=== PATIENT | female | born 1955 | race Caucasian/White ===

== ENCOUNTER 2019-11-29 06:56 | Day surgery (SDC) | payer OTHER, SELFPAY ==
[2019-11-20 08:47] VITALS: BMI 25.0
--- NOTE | 2019-11-20 09:21 | HP_ITS ---
Intake Vital Signs 11/20/19 Height 5 ft 5 in 11/20/19 Weight: 150 lb 11/20/19 BP 119/66 11/20/19 Blood Pressure Location Rt brachial 11/20/19 Position Sitting 11/20/19 Respiration 16 Intake Visit Reasons: EGD & C-Scope Monkey Keeper Required: No Is patient in pain?: No Allergies No Known Allergies Allergy (Unverified 11/20/19 08:48) Medications ascorbic acid (vitamin C) 500 mg capsule mg PO 11/20/19 [History Confirmed 11/20/19] calcium carbonate 500 mg (1,250 mg)-vitamin D3 200 unit tablet 1 tab PO DAILY 11/20/19 [History Confirmed 11/20/19] carboxymethylcellulose sodium 0.5 % eye drops 1 drp OPHTHALMIC BID 11/20/19 [History Confirmed 11/20/19] cholecalciferol (vitamin D3) 25 mcg (1,000 unit) tablet 25 mcg PO DAILY 11/20/19 [History Confirmed 11/20/19] cyclosporine 0.05 % eye drops 1 drp OPHTHALMIC Q12H 11/20/19 [History Confirmed 11/20/19] duloxetine 60 mg capsule,delayed release sprinkle 60 mg PO DAILY 11/20/19 [History Confirmed 11/20/19] famotidine 20 mg tablet 20 mg PO DAILY 11/20/19 [History Confirmed 11/20/19] fenofibrate 160 mg tablet 160 mg PO DAILY 11/20/19 [History Confirmed 11/20/19] fluticasone propionate 50 mcg/actuation nasal spray,suspension 1 spray INTRANASAL DAILY 11/20/19 [History Confirmed 11/20/19] hydrochlorothiazide 12.5 mg tablet 12.5 mg PO DAILY 11/20/19 [History Confirmed 11/20/19] loratadine 10 mg tablet 10 mg PO DAILY 11/20/19 [History Confirmed 11/20/19] losartan 100 mg tablet 100 mg PO DAILY 11/20/19 [History Confirmed 11/20/19] nebivolol 5 mg tablet 5 mg PO DAILY 11/20/19 [History Confirmed 11/20/19] niacin 500 mg tablet 500 mg PO DAILY 11/20/19 [History Confirmed 11/20/19] omeprazole 20 mg tablet,delayed release 20 mg PO DAILY #60 tab 11/20/19 [Rx Confirmed 11/20/19] pravastatin 40 mg tablet 40 mg PO DAILY 11/20/19 [History Confirmed 11/20/19] sucralfate 1 gram tablet 1 g PO QACHS #120 tab 11/20/19 [Rx Confirmed 11/20/19] [facility] Medical History Allergies (Acute) Depression (Acute) High cholesterol (Acute) Reflux esophagitis (Acute) HTN (hypertension) (Chronic) Social History (Updated 11/20/19 @ 09:[address] Sukh Givens MD) Smoking Status: Never smoker alcohol intake: never HPI HPI HPI: CLAUDIA FROST, is a 64 F who presents to the office today for HPI HPI Surgical H&P: Yes HPI: CLAUDIA FROST, is a 64 F who presents to the office today for Abdominal pain and change in stool caliber. The patient reports that she has been having indigestion as well as abdominal pain especially with coffee and eating. She describes the pain as diffuse abdominal. She is also been having change in her stool caliber describing pencil thin stools. She also says it is very hard to wipe. She does not describe any gross blood in her stool. Her last colonoscopy was in 2014 and was normal besides a hyperplastic polyp. ROS General General: No weight change or fatigue Musc Musculoskeletal: Yes arthritis Cardio Cardiovascular: Yes high blood pressure; no murmur, pacemaker, heart disease, atrial fibrillation, heart attack, heart stent, palpitations, shortness of breat with exertion or chest pain Psych Psychiatric: Yes depression; no anxiety Resp Respiratory: No shortness of breath, No sleep apnea, No cough, No COPD, No asthma, No emphysema, No wheezing Gastro Gastrointestinal: Yes abdominal pain, Yes nausea or vomiting, No diarrhea, Yes constipation, No blood in stool, Yes acid reflux, No hemorrhoids, No ulcers, No gallbladder problem, No black,tarry stools Alvaro Hematologic: No blood thinners Exam Const General: cooperative Orientation: alert, oriented x3 Resp Effort & Inspection: normal respiratory effort Auscultation: clear to auscultation bilaterally Cardio Rate: regular rate Rhythm: regular rhythm Heart Sounds: no murmurs GI Inspection: non-distended Palpation: soft, tender Assessment & Plan Problems 1. Generalized abdominal pain R10.84 2. Change in stool caliber R19.5 3. Gastroesophageal reflux disease, esophagitis presence not specified K21.9 Plan Patient has GERD which is been getting worse. She says that her abdominal pain is especially bad when she drinks coffee. She says that she also has been having change in stool caliber and decreased stool caliber. I recommend EGD and colonoscopy. I also started her on Carafate and a PPI. I explained endoscopy in detail to the patient. I explained the risks including but not limited to stroke or heart attack with anesthesia, perforation of the GI tract, bleeding, infection. I explained that any of these could necessitate further emergency surgery. The patient understands and all questions were answered sufficiently. The patient wishes to proceed with procedure. We discussed the current risks associated with COVID-19. While it is understood that there is a community spread of COVID-19, the risk of alvina COVID-19 while at [facility] ([facility]) is very low; however, the risk cannot be completely mitigated because of the community spread of the disease. We discussed in detail the risk of exposure to and/or potential harm posed by the COVID-19 virus with having a surgery/procedure at this time versus the risk of delaying the surgery/procedure. It is not possible to know either the risk of delaying the surgery or procedure or chance of getting an infection with perfect accuracy, but a joint decision was made to proceed at this time with the scheduled surgery/procedure as indicated on the consent form. Patient was notified that we will need to comply with any screening or testing [facility] wishes to perform or that surgery may be delayed for any positive results. Sukh Givens MD Pager: [facility] [address] [place] [address], [address] [place] [address] Office: Orders Orders: Colonoscopy Today R10.9, R19.5 EGD Today K21.9 Medications New: sucralfate (Carafate) 1 g PO QACHS 120 tabs 0RF omeprazole 20 mg PO DAILY 60 tabs 2RF Coding Level of Care Code Off vis,new,level 3 Diagnoses Generalized abdominal pain R10.84 ??Abdominal location: generalized Change in stool caliber R19.5 Gastroesophageal reflux disease, esophagitis presence not specified K21.9 ??Esophagitis presence: esophagitis presence not specified 11/20/19 0921 <Electronically signed by Sukh prince MD> Date _ Sukh Givens MD I have re-examined the patient. There are no clinical changes since date of exam.
--- NOTE | 2019-11-29 | GASB_PTH ---
PATIENT: CLAUDIA FROST LOC: EN U#:[id number] AGE/SX: 64/F ROOM: RE11/29/[address]: Dr. Sukh Givens MD : 1955 BED: DIS: 11/29/2019 SPEC #: [id number] RECD: 11/29/19 13:38 STATUS: TALIB BUBBA #: [id number] CARLOS: 11/29/19 00:[address]: Sukh Givens DEPT: SURGICAL PATHOLOGY RECD BY: Reyes Mckeon ENTERED: 11/30/19 08:43 SP TYPE: Gastric Bx OTHR DR: Ingris Judge, [place] Tissues: A - Gastric mucous membrane B - Gastric mucous membrane Procedures: Special Stain Group II Surgery Specimen Level IV Alcian Blue/PAS (control) HEADER OPERATION: [place] [place] DIAGNOSIS: GERD, abdomen pain, change in stool caliber TISSUE SUBMITTED: A - Antrum biopsy for histo and H. pylori, B - GE junction biopsy MICROSCOPIC DIAGNOSIS A. Antrum, biopsy: Mild gastritis. See microscopic description and comment. B. GE junction, biopsy: Fragments of gastroesophageal mucosa with moderate acute and chronic inflammation. Intestinal metaplasia (goblet cell metaplasia) not identified. Reactive epithelial changes. See comment. SJ:obi 12/03/19 COMMENT A. The results of immunohistochemistry for Helicobacter pylori will be reported separately ([id number]). B. Alcian blue/PAS stain with matched control is used in the evaluation of the specimen. Case has been reviewed in consultation with Dr. Zavaleta who concurs with the above diagnosis. IDC:AM MICROSCOPIC DESCRIPTION Slides are reviewed. A. The specimen shows fragments of gastric mucosa with chronic inflammatory cell infiltrates in the lamina propria consisting of lymphocytes and plasma cells, consistent with mild chronic gastritis. GROSS DESCRIPTION A - Received in fixative is one container labeled with the patient's name and designated antrum biopsy. The specimen consists of two irregular fragments of light robles soft tissue that in aggregate measure 0.5 x 0.3 x 0.1 cm. The specimen is totally submitted in one cassette. B - Received in fixative is one container labeled with the patient's name and designated GE junction biopsy. The specimen consists of two irregular fragments of light robles soft tissue that in aggregate measure 0.4 x 0.3 x 0.1 cm. The specimen is totally submitted in one cassette. / SJ:rg 11/30/19 TC:4 CPT: 65904 x2, 53944
[2019-11-29 07:21] VITALS: BP 132/77; PULSE 67; RESP 16; TEMP 36.4; O2SAT 99; BMI 24.3
[2019-11-29] MEDS: Lactated Ringers 1,000 ML 100 ML IV (07:49)
--- NOTE | 2019-11-29 08:00 | IMM_PTH ---
PATIENT: CLAUDIA FROST LOC: EN U#:[id number] AGE/SX: 64/F ROOM: RE11/29/[address]: Dr. Sukh Givens MD : 1955 BED: DIS: 11/29/2019 SPEC #: [id number] RECD: 11/30/19 09:50 STATUS: TALIB BUBBA #: [id number] CARLOS: 11/29/19 08:[address]: Sukh Givens DEPT: IMMUNOHISTOCHEMISTRY RECD BY: Petrona Almaraz ENTERED: 11/30/19 09:51 SP TYPE: IMMUNO OTHR DR: Ingris Judge, TERR[place] Tissues: A - Stomach, NOS Procedures: H Pylori (initial) PHYSICIAN & INSTITUTION [place] [id number] SPECIMEN INFORMATION: Tissue Source: A - Antrum biopsy Clinical Info: GERD, abdomen pain, change in stool caliber Specimen Number: [id number] CPT code: 70627 METHODOLOGY: Deparaffinized sections of prefer/formalin-fixed tissue or PAP/DQ stained slides are incubated with monoclonal/polyclonal antibodies/oligonucleotide probes. Localization is made via biotin free immunoperoxidase method. Appropriate controls are performed and reacted as expected. Results on target cell population are indicated in the following table: RESULTS: ANTIBODY / CLONE RESULT Block A H Pylori (polyclonal) negative These tests were developed and their performance characteristics determined by [facility]. They may not have been cleared or approved by the U.S. Food and Drug Administration. The FDA has determined that such clearance or approval is not necessary. INTERPRETATION: A. Antrum, biopsy: Negative for Helicobacter pylori organisms. SJ:obi 12/03/19
--- NOTE | 2019-11-29 08:48 | OP.EGD_ITS ---
Patient Name: Maricarmen Jenkins Procedure Date: 11/29/2019 8:19 AM Date of : 1955 Age: 64 Procedure: Upper GI endoscopy Indications: Epigastric abdominal pain, Melena Providers: Sukh Givens MD Referring MD: Eufemia Ruvalcaba Medicines: Monitored Anesthesia Care Patient Profile: This is a 64 year old female. Refer to note in patient chart for documentation of history and physical. Complications: No immediate complications. Estimated blood loss: Minimal. Procedure: Pre-Anesthesia Assessment: - Prior to the procedure, a History and Physical was performed, and patient medications and allergies were reviewed. The patient's tolerance of previous anesthesia was also reviewed. The risks and benefits of the procedure and the sedation options and risks were discussed with the patient. All questions were answered, and informed consent was obtained. Prior Anticoagulants: The patient has taken no previous anticoagulant or antiplatelet agents. After reviewing the risks and benefits, the patient was deemed in satisfactory condition to undergo the procedure. After obtaining informed consent, the endoscope was passed under direct vision. Throughout the procedure, the patient's blood pressure, pulse, and oxygen saturations were monitored continuously. The gastroscope was introduced through the mouth, and advanced to the second part of duodenum. The upper GI endoscopy was accomplished without difficulty. The patient tolerated the procedure well. Scope In: 8:26:59 AM Scope Out: 8:31:16 AM Total Procedure Duration Time 0 hours 4 minutes 17 seconds Findings: Diffuse mild inflammation characterized by adherent blood was found in the prepyloric region of the stomach. Biopsies were taken with a cold forceps for Helicobacter pylori testing. Biopsies were taken with a cold forceps at the gastroesophageal junction for histology. Impression: - Gastritis. Biopsied. - Biopsies were taken with a cold forceps for histology at the gastroesophageal junction. Recommendation: - Discharge patient to home. - Resume previous diet. - Continue present medications. - Await pathology results. Procedure Code(s): --- Professional --- 15222, Esophagogastroduodenoscopy, flexible, transoral; with biopsy, single or multiple Diagnosis Code(s): --- Professional --- K29.70, Gastritis, unspecified, without bleeding R10.13, Epigastric pain K92.1, Melena (includes Hematochezia) CPT copyright 2017 [employer]. All rights reserved. The codes documented in this report are preliminary and upon drafting detailer review may be revised to meet current compliance requirements. Sukh Givens MD 11/29/2019 8:47:40 AM This report has been signed electronically. Number of Addenda: 0 Note Initiated On: 11/29/2019 8:19 AM
--- NOTE | 2019-11-29 08:48 | OP.CCLET_ITS ---
11/29/2019 Eufemia Ruvalcaba Re : Upper GI endoscopy procedure for Maricarmen Sibley Nu This procedure was performed on November. My impressions and recommendations are as follows: Impressions : - Gastritis. Biopsied. - Biopsies were taken with a cold forceps for histology at the gastroesophageal junction. Recommendations : - Discharge patient to home. - Resume previous diet. - Continue present medications. - Await pathology results. My findings are described in the full procedure note, which is enclosed. If I can be of further assistance, please feel free to contact me at Doctor phone number(s): , Work: . Sincerely, Sukh Givens MD 11/29/2019 8:47:40 AM This report has been signed electronically.
--- NOTE | 2019-11-29 08:49 | OP.COLON_ITS ---
Patient Name: Maricarmen Jenkins Procedure Date: 11/29/2019 8:31 AM Date of : 1955 Age: 64 Procedure: Colonoscopy Indications: Abdominal pain in the left lower quadrant, Melena, Change in stool caliber Providers: Sukh Givens MD Referring MD: Eufemia Ruvalcaba Medicines: Monitored Anesthesia Care Patient Profile: This is a 64 year old female. Refer to note in patient chart for documentation of history and physical. Last Colonoscopy: 5 years ago. Complications: No immediate complications. Procedure: Pre-Anesthesia Assessment: - Prior to the procedure, a History and Physical was performed, and patient medications and allergies were reviewed. The patient's tolerance of previous anesthesia was also reviewed. The risks and benefits of the procedure and the sedation options and risks were discussed with the patient. All questions were answered, and informed consent was obtained. Prior Anticoagulants: The patient has taken no previous anticoagulant or antiplatelet agents. After reviewing the risks and benefits, the patient was deemed in satisfactory condition to undergo the procedure. After I obtained informed consent, the scope was passed under direct vision. Throughout the procedure, the patient's blood pressure, pulse, and oxygen saturations were monitored continuously. The Colonoscope was introduced through the anus and advanced to the cecum, identified by appendiceal orifice and ileocecal valve. The colonoscopy was performed without difficulty. The patient tolerated the procedure well. The quality of the bowel preparation was good. Scope In: 8:33:03 AM Scope Withdrawal Time 0 hours 6 minutes 35 seconds Scope Out: 8:43:25 AM Total Procedure Duration Time 0 hours 10 minutes 22 seconds Findings: The entire examined colon appeared normal on direct and retroflexion views. Impression: - The entire examined colon is normal on direct and retroflexion views. - No specimens collected. Recommendation: - Discharge patient to home. - Resume previous diet. - Continue present medications. - Repeat colonoscopy in 10 years for screening purposes. Procedure Code(s): --- Professional --- 70911, Colonoscopy, flexible; diagnostic, including collection of specimen(s) by brushing or washing, when performed (separate procedure) Diagnosis Code(s): --- Professional --- R10.32, Left lower quadrant pain K92.1, Melena (includes Hematochezia) R19.5, Other fecal abnormalities CPT copyright 2017 [employer]. All rights reserved. The codes documented in this report are preliminary and upon conductor orchestra review may be revised to meet current compliance requirements. Sukh Givens MD 11/29/2019 8:49:30 AM This report has been signed electronically. Number of Addenda: 0 Note Initiated On: 11/29/2019 8:31 AM
--- NOTE | 2019-11-29 08:49 | OP.CCLET_ITS ---
11/29/2019 Eufemia Ruvalcaba Re : Colonoscopy procedure for Maricarmen Farfanr Nu This procedure was performed on November. My impressions and recommendations are as follows: Impressions : - The entire examined colon is normal on direct and retroflexion views. - No specimens collected. Recommendations : - Discharge patient to home. - Resume previous diet. - Continue present medications. - Repeat colonoscopy in 10 years for screening purposes. My findings are described in the full procedure note, which is enclosed. If I can be of further assistance, please feel free to contact me at Doctor phone number(s): , Work: . Sincerely, Sukh Givens MD 11/29/2019 8:49:30 AM This report has been signed electronically.
[2019-11-29 08:51] VITALS: BP 109/67; BP 132/77; PULSE 79; RESP 16; TEMP 36.1; O2SAT 97
[2019-11-29 08:55] VITALS: BP 121/64; BP 132/77; PULSE 78; RESP 16; O2SAT 97
[2019-11-29 09:02] VITALS: BP 114/61; BP 132/77; PULSE 75; RESP 16; O2SAT 99
[2019-11-29 09:03] VITALS: BP 123/63; BP 132/77; PULSE 72; RESP 16; TEMP 36.1; O2SAT 99
[2019-11-29 09:30] VITALS: BP 129/61; BP 132/77; PULSE 67; RESP 18; TEMP 36.1; O2SAT 97
== END 2019-11-29 09:33 | disposition home or self-care (01) ==
LOC: EN 06:57 → AC 06:59
PROVIDERS: Anesthesiology; PCP Nurse Practitioner Family; Referring Provider Nurse Practitioner Family; Visit Provider Surgery
PROC: 0DJD8ZZ Inspection of Lower Intestinal Tract, Via Natural or Artificial Opening Endoscopic (ICD-10-PCS; CPT 45378; principal; 2019-11-29 07:55)
DX: K29.70 Gastritis, unspecified, without bleeding (principal); K21.9 Gastro-esophageal reflux disease without esophagitis; R19.5 Other fecal abnormalities; F32.9 Major depressive disorder, single episode, unspecified; E78.00 Pure hypercholesterolemia, unspecified; I12.9 Hypertensive chronic kidney disease with stage 1 through stage 4 chronic kidney disease, or unspecified chronic kidney disease; N18.3 Chronic kidney disease, stage 3 (moderate); Z11.59 Encounter for screening for other viral diseases; Z79.899 Other long term (current) drug therapy
CPT/HCPCS: 43239; 45378; 87635; 88305; 88313; 88342; G2023; J7120; J2405; U0003

== ENCOUNTER → 2020-01-04 | Outpatient (CLI) | payer OTHER, SELFPAY ==
--- NOTE | 2020-01-04 07:44 | US_ITS ---
STUDY: ABDOMINAL ULTRASOUND - RIGHT UPPER QUADRANT REASON FOR VISIT: Female, 64 years old ABD PAIN AFTER EATING -- HX OF GASTRITIS TECHNIQUE: Ultrasound evaluation of the right upper quadrant was performed with real-time and static rodriguez-scale imaging. TECHNICAL QUALITY: Adequate. COMPARISON: None. FINDINGS: Liver: The liver measures 15.2 cm. There is normal echogenicity of the liver. The bile ducts are within normal limits. There is hepatic color flow. The direction of portal flow is hepatopetal. There is no demonstrated mass lesion. Gallbladder: Normal distended gallbladder. The gallbladder wall measures 2.5 mm. There is a negative sonographic Ferrara''s sign. There is no pericholecystic fluid. There are no gallstones. Common Bile Duct (C.B.D.): The common bile duct measures 3.6 mm. Pancreas: Normal size of the head, body and tail of the pancreas. There is increased echogenicity of the pancreas. There is no demonstrated pancreatic mass or cyst. Right Kidney: Normal size of the right kidney. The right kidney measures 10.1 cm x 4.1 cm x 4.4 cm. Normal renal cortex. The right cortex measures 1.2 cm. There is no demonstrated renal mass or cyst. There is no right hydronephrosis. US/Abdomen Limited IMPRESSION: Normal right upper quadrant ultrasound examination. Electronically Signed: Missael De Luna, at 9:52 EDT , Service support ,
== END | disposition home or self-care (01) ==
PROVIDERS: PCP Nurse Practitioner Family; Referring Provider Surgery; Visit Provider Surgery
DX: R10.11 Right upper quadrant pain (principal)
CPT/HCPCS: 76705

== ENCOUNTER → 2022-01-14 | Outpatient (CLI) | payer MEDICARE, SELFPAY ==
--- NOTE | 2022-01-14 15:36 | MRI_ITS ---
STUDY: MRI RIGHT SHOULDER REASON FOR EXAM: Decreased range of motion of the right shoulder, no specific injury, evaluate for rotator cuff tear. TECHNIQUE: Standardized fat and water weighted pulse sequences were obtained in all 3 orthogonal planes. COMPARISON: Radiographs 11/17/2021. FINDINGS: There is supraspinatus tendinosis and a small low-grade partial-thickness tear of the bursal surface of the distal anterior supraspinatus tendon (T2 coronal image 14) measuring 0.3 cm in length. There is mild infraspinatus tendinosis (T2 coronal image 9) without discrete tendon tear. Normal subscapularis tendon. Normal teres minor tendon. There is a cyst at the supraspinatus musculotendinous junction (T2 coronal image 10) measuring 1.1 cm in mediolateral dimension. Normal infraspinatus muscle. Normal subscapularis muscle. Normal teres minor muscle. Normal glenohumeral articulation. There is mild cystic change of the greater tuberosity. Normal biceps labral complex. Normal intracapsular long biceps tendon. Normal labrum. Normal capsulo- ligamentous complex. There is acromioclavicular arthrosis with a joint effusion (T2 sagittal image 11) without undersurface osteophytes. There is a Type II morphology (curved), with a neutral orientation. There is a small volume of subacromial-subdeltoid bursal fluid. Normal visualized coracohumeral and coracoacromial ligaments. Normal deltoid muscle. Normal trapezius muscle. MRI/Upper Ext Joint Only(Routine) IMPRESSION: Small low-grade partial-thickness tear and tendinosis of the supraspinatus tendon. Mild infraspinatus tendinosis. Cyst at the supraspinatus musculotendinous junction. Acromioclavicular arthrosis. Mild subacromial-subdeltoid bursitis. Electronically Signed: Tray Jorge MD at 8:52 EDT ,
== END | disposition home or self-care (01) ==
PROVIDERS: PCP Nurse Practitioner Family; Visit Provider Orthopaedic Surgery Sports Medicine
DX: M75.81 Other shoulder lesions, right shoulder (principal)
CPT/HCPCS: 73221

== ENCOUNTER 2022-03-03 08:18 | Day surgery (SDC) | payer MEDICARE, SELFPAY ==
[2022-02-25 10:18] LABS: Hematocrit 38.5 % (37-47); Hemoglobin 12.2 g/dL (12.0-15.0); Mean Corp Hgb Conc 31.7 g/dL (32-36); Mean Corpuscular Hgb 26.6 pg (27.0-32.0); Mean Corpuscular Volume 84.1 fL (81-99); Platelet Count 247 K/mm3 (150-450); RBC Distribution Width CV 13.9 % (11.6-14.6); RBC Distribution Width SD 43.2 fl (35.1-43.9); Red Blood Count 4.58 M/mm3 (4.2-5.4); White Blood Count 5.9 K/mm3 (4.4-11.0)
[2022-02-25 10:48] LABS: Anion Gap 8 (5-15); BUN 25 mg/dL (7-18); BUN/Creat Ratio 22.3 RATIO (10-20); Calcium,Total 9.9 mg/dL (8.5-10.1); Chloride 100 mmol/L (98-107); Creatinine, Serum 1.12 mg/dL (0.55-1.02); EST Glomerular Filtration Rate 52 mL/min (>60); Est Glom Filt Rate - Afr Amer 63 mL/min (>60); Glucose 90 mg/dL (74-106); Potassium 3.6 mmol/L (3.5-5.1); Sodium Level 137 mmol/L (136-145)
[2022-03-03] VITALS (7 sets, daily range): BP systolic 114–131; BP diastolic 58–86; PULSE 58–63; RESP 16–18; TEMP 36.1–37; O2SAT 94–100; BMI 24.9
[2022-03-03] MEDS: Lactated Ringers 1,000 ML 15 ML IV (08:50)
[2022-03-03] MEDS: Cefazolin 2 GM in 0.9% Normal Saline 100 ML IV (10:05)
--- NOTE | 2022-03-03 10:10 | HP.PCM_ITS ---
HPI - General HPI Narrative CLAUDIA FROST, is a 66 F who presents for right shoulder scope, SAD, RCR, DCE. No changes to health or plan. Right shoulder marked, plan for block. No questions or concerns from the patient. No Known Allergies Allergy (Verified 02/11/22 08:14) Medications ascorbic acid (vitamin C) 500 mg capsule 500 mg PO DAILY 11/20/19 [History Confirmed 02/11/22] calcium carbonate 500 mg-vitamin D3 5 mcg (200 unit) tablet (Calcium 500 + D) 1 tab PO DAILY 11/20/19 [History Confirmed 02/11/22] carboxymethylcellulose sodium 0.5 % eye drops (Refresh Tears) 1 drp ophthalmic (eye) BID 11/20/19 [History Confirmed 02/11/22] cholecalciferol (vitamin D3) 25 mcg (1,000 unit) tablet 25 mcg PO DAILY 11/20/19 [History Confirmed 02/11/22] cyclosporine 0.05 % eye drops (Restasis MultiDose) 1 drp ophthalmic (eye) Q12H 11/20/19 [History Confirmed 02/11/22] fenofibrate 160 mg tablet 160 mg PO DAILY 11/20/19 [History Confirmed 02/11/22] nebivolol 5 mg tablet (Bystolic) 5 mg PO DAILY 11/20/19 [History Confirmed 02/11/22] niacin 500 mg tablet 500 mg PO DAILY 11/20/19 [History Confirmed 02/11/22] hydrochlorothiazide 25 mg tablet 25 mg PO 01/01/22 [History Confirmed 02/11/22] magnesium 250 mg tablet 500 mg PO DAILY 01/01/22 [History Confirmed 02/11/22] sertraline 50 mg tablet 75 mg PO 01/01/22 [History Confirmed 02/11/22] simvastatin 40 mg tablet 40 mg PO 01/01/22 [History Confirmed 02/11/22] sucralfate 1 gram tablet See Rx Instructions .Route .COMPLEX #90 tabs 01/28/22 [Rx Confirmed 02/11/22] PFSH Medical History? AC joint arthropathy Allergies Depression High cholesterol History of skin cancer HTN (hypertension) Reflux esophagitis Rotator cuff tear, right Subacromial impingement of right shoulder Surgical History? Hx of knee surgery Family History? Sister CVA (cerebral vascular accident)Mother DiabetesFather Heart disease Hypertension Diabetes Cancer Social History? Smoking Status:? Former smoker alcohol intake:? never HPI RIGHT SHOULDER Details: Parts of this documentation were recorded by a scribe, this documentation accurately reflects the service provided and the decisions made by me, Dr. Hilton Recio MD 02/11/22 0801. CLAUDIA FROST is a 66 year old F here today for follow-up on right shoulder pain including small rotator cuff tear AC joint arthrosis and impingement syndrome.? She did find some relief from the injection but the pain is returned.? Specially prominent at the anterior superior lateral aspect of the shoulder worse at night worse with sleeping worse with overhead activity and abduction or reaching away from the body. Ortho Exam General General: Yes no acute distress and Yes well groomed Neurologic: Yes alert, Yes oriented x3 and No confused Psychologic: Yes reasonable and appropriate Right Shoulder Skin/Wound: Yes CDI, No ecchymosis, No erythema and No swelling Contralateral Normal: Yes Testing: Positive Hawkin's, Neer's, Speed's, TTP Biceps, TTP AC Joint, AROM- Forward Elevation 0-180, AROM-External Rotation at side 0-60 and empty can; Negative Drop Arm or scapular winging SHOULDER: Positive cross body adduction test.? Strength in forward elevation and external rotation 5/5.? Positive painful arc. Supplemental Info 01/14/22 Exam# [id number] ? Ordering Dr:? Hilton Recio MD STUDY: ? MRI RIGHT SHOULDER REASON FOR EXAM: Decreased range of motion of the right shoulder, no specific injury, evaluate for rotator cuff tear. TECHNIQUE: ? Standardized fat and water weighted pulse sequences were obtained in all 3 orthogonal planes. COMPARISON: ? Radiographs 11/17/2021. FINDINGS: There is supraspinatus tendinosis and a small low-grade partial-thickness tear of the bursal surface of the distal anterior supraspinatus tendon (T2 coronal image 14) measuring 0.3 cm in length. There is mild infraspinatus tendinosis (T2 coronal image 9) without discrete tendon tear. Normal subscapularis tendon.? Normal teres minor tendon. There is a cyst at the supraspinatus musculotendinous junction (T2 coronal image 10) measuring 1.1 cm in mediolateral dimension.? Normal infraspinatus muscle.? Normal subscapularis muscle.? Normal teres minor muscle. Normal glenohumeral articulation.? There is mild cystic change of the greater tuberosity.? Normal biceps labral complex.? Normal intracapsular long biceps tendon.? Normal labrum.? Normal capsulo- ligamentous complex. There is acromioclavicular arthrosis with a joint effusion (T2 sagittal image 11) without undersurface osteophytes.? There is a Type II morphology (curved), with a neutral orientation. There is a small volume of subacromial-subdeltoid bursal fluid. Normal visualized coracohumeral and coracoacromial ligaments. Normal deltoid muscle.? Normal trapezius muscle. MRI/Upper Ext? Joint Only(Routine) IMPRESSION: Small low-grade partial-thickness tear and tendinosis of the supraspinatus tendon. ? Mild infraspinatus tendinosis. ? Cyst at the supraspinatus musculotendinous junction. ? Acromioclavicular arthrosis. ? Mild subacromial-subdeltoid bursitis. ? Electronically Signed: Tray Jorge MD at 8:52 EDT Reading Location ID and State: [facility] / [place] Tel , Service support? , Coding Level of Care Code Off vis,est,level 4 Diagnoses Rotator cuff tear, right? M75.101 Right shoulder pain? M25.511 AC joint arthropathy? M19.019 Subacromial impingement of right shoulder? M75.41 Time Spent (min) 30 Assessment and Plan Assessment and Plan (1) Rotator cuff tear, right: ?Status:?Acute ?Plan: 66-year-old female with partial-thickness right supraspinatus tear tendinosis AC joint arthrosis and mild amount of subacromial bursitis.? We again discussed different treatment options.? She could try rest ice anti-inflammatories activit y modifications repeat subacromial cortisone injections physical therapy or other means of treatment.? She seems to want a definitive solution to this problem she seems to be interested in right shoulder arthroscopy this would include distal clavicle excision and subacromial decompression and rotator cuff repair with bursectomy. Pros and cons risks and benefits were discussed with the patient including but not limited to infection, pain, stiffness, bleeding, damage to surrounding structures, neurovascular injury, recurrence or retear, failure or wear of hardware or fixation, instability, fracture, deep vein thrombosis and pulmonary embolism, anesthetic risks, patient dissatisfaction, need for further surgery and other risks.? Patient understood and wished to proceed with surgery, and signed the informed consent documentation. I discussed the recovery associated with this likely 2 weeks in a sling followed by range of motion exercises physical therapy progressing to strengthening by 6 to 8 weeks after surgery. This patient has 4 different diagnosis about the shoulder, came in undif ferentiated.? We are booking today major joint elective surgery with risk factors including hypertension and dyslipidemia. [facility] Medical History (Updated 02/24/22 @ 10:39 by Nona Linda) AC joint arthropathy Alcohol use Allergies Arthritis Depression Diabetes Former smoker High cholesterol History of edema History of renal disease History of skin cancer History of steroid therapy History of stress test History of ulceration HTN (hypertension) Leg cramps Reflux esophagitis Rotator cuff tear, right Subacromial impingement of right shoulder Home Medications ascorbic acid (vitamin C) 500 mg capsule 500 mg PO DAILY 11/20/19 [History Last Taken Unknown] carboxymethylcellulose sodium 0.5 % eye drops (Refresh Tears) 1 drp ophthalmic (eye) BID 11/20/19 [History Last Taken Unknown] cholecalciferol (vitamin D3) 25 mcg (1,000 unit) tablet 25 mcg PO DAILY 11/20/19 [History Last Taken Unknown] cyclosporine 0.05 % eye drops (Restasis MultiDose) 1 drp ophthalmic (eye) Q12H 11/20/19 [History Last Taken Unknown] fenofibrate 160 mg tablet 160 mg PO DAILY 11/20/19 [History Last Taken Unknown] nebivolol 5 mg tablet (Bystolic) 5 mg PO DAILY 11/20/19 [History Last Taken 03/03/22] niacin 500 mg tablet 500 mg PO DAILY 11/20/19 [History Last Taken Unknown] hydrochlorothiazide 25 mg tablet 25 mg PO DAILY 01/01/22 [History Last Taken 03/03/22] magnesium 250 mg tablet 500 mg PO DAILY 01/01/22 [History Last Taken Unknown] sertraline 50 mg tablet 75 mg PO DAILY 01/01/22 [History Last Taken Unknown] simvastatin 40 mg tablet 40 mg PO DAILY 01/01/22 [History Last Taken Unknown] Allergy/AdvReac Type Severity Reaction Status Date / Time No Known Allergies Allergy Verified 03/03/22 08:38 Family History Sister CVA (cerebral vascular accident) Mother Diabetes Father Heart disease Hypertension Diabetes Cancer Surgical History (Updated 02/24/22 @ 10:39 by Nona Linda) Hx of colonoscopy Hx of total knee replacement Social History Smoking Status: Former smoker alcohol intake: never Vital Signs Vital Signs Vital Signs: 03/03/22 08:44 03/03/22 08:44 Temperature 98.6 F Temperature Source Temporal Pulse Rate 63 Respiratory Rate 16 Respiratory Pattern Normal Blood Pressure 131/62 H Blood Pressure Mean 85 Blood Pressure Source Monitor Blood Pressure Position Semi-Fowlers Blood Pressure Location Left Arm Pulse Ox 100 Oxygen Delivery Method Room Air Weight Weight: 149 lb 14.629 oz Body Mass Index (BMI) 24.9 Results Lab / Micro Data Result Diagrams: 02/25/22 09:30 02/25/22 09:30
--- NOTE | 2022-03-03 12:13 | PCM.OPRPT ---
Problems Associated Problem List Diagnoses (1) Subacromial impingement of right shoulder: (2) AC joint arthropathy: (3) Rotator cuff tear, right: Report of Operation Date of Procedure: 03/03/22 Pre-Operative Diagnosis: right shoulder RC tear, ACJ arthrosis, impingement Post-Operative Diagnosis: same Surgery/Procedure Performed:: right shoulder arthroscopy, sub acromial decompression, distal clavicle excision, rotator cuff repair Description of Surgical Findings:: leading edge full thickness 5mm x 5mm tear SS tendon, ACJ arthrosis Surgeon: Hilton Recio Type of Anesthesia: Block,Regional and General Anesthesiologist: Vadmi Balderas Estimated Blood Loss (mL): 30 Description of Procedure: Patient was brought to the operating room theater.? They were placed supine on the operating room table.? 2 g of IV Ancef was administered prior to start of the case.? General anesthesia was induced.? Patient had a preoperative block.? Patient was placed right side up lateral decubitus with the aid of a beanbag positioner.? Axillary roll was placed.? All bony prominences appropriately padded.? Sequential devices on the legs.? Right upper extremity prepped and draped in the usual sterile fashion with chlorhexidine prep solution allowing over 3 minutes drying time prior to draping.? 10 pounds of inline traction with the arm in slight abduction was used.? Preoperative timeout performed to confirm the site patient in the surgery. I began by making a small incision posteriorly inserted the arthroscope into the intra-articular portion of the shoulder.? I performed thorough diagnostic arthroscopy.?Used inside out spinal needle to localize anterior portal, through rotator interval posterior to LHB. Undersurface of the rotator cuff in the anterior aspect of the supraspinatus tendon had obvious fraying there was some thinning here palpable from the superior surface.?I took arthroscopy pictures throughout and saved them onto the system. Biceps normal for age, subscapularis normal, normal lever push, cartilage normal on glenoid, grade 1 on humerus head. Small 5mm aspect of MGHL appeared to be forming into a loose body, so removed that and debrided that part. Next I inserted the arthroscope into the subacromial portion of the shoulder.? I performed a thorough bursectomy. Used one canula laterally, and eventually accessory AL canula / portal.? There is slight downsloping of the anterior lateral acromion I used a jenny to flatten this out for a total thickness of approximately 3 mm.? Next I performed a distal clavicle excision for a length of 3mm. Next identify the area of fraying and partial-thickness tearing of the supraspinatus tendon. This was anterior leading edge, and full thickness with probing. I used the Arthrex power pick to create a bleeding bed for healing at the GT. I then used 2 Arthrex 2.6 mm all suture self punching fiber tack anchors on the anterior and posterior margins of the partial-thickness tearing area.? I passed the working stitch through the loop of the opposite suture and tensioned this down appropriately to create an anterior to posterior bridging construct.? Next I used the Arthrex punch at an area at the lateral aspect of the rotator cuff insertion took the 2 free ends of the sutures and passed these into the swivel lock 4.75 mm bio Composite anchor and appropriately tensioned this down into place achieving good cortical purchase.? Sutures were cut short.? This created a nice triangular configuration trans-tendon suture repair without the need to take down any good fibers. Case was terminated arthroscope withdrawn.? ? Portal sites closed with 3-0 Monocryl sutures.? Skin was cleaned with wet and dry dressing followed application of Steri-Strips Xeroform gauze abdominal pad dressings and cloth tape.? Patient right upper extremity placed into a sling with an abduction pillow.? Patient woken up from general anesthetic transferred off the operating room table and taken to postanesthetic care unit in stable condition.? All sponge needle instrument counts were correct no complications.? Plan for the patient gentle pendulum exercises avoiding extremes of external rotation and forward elevation no heavy lifting hand wrist and elbow exercises 4 times a day follow-up in the office in 2 weeks time.? I have sent in a small prescription for oral combine narcotic Tylenol medication with appropriate counseling given preoperatively to the patient.? Patient will be discharged home when they are comfortable according to day surgery criteria. Complications none Admit VTE Documentation VTE Present on Admission: No VTE Mechan Device Prophylaxis: SCD's Reason prophylaxis not ordered:: Treatment Not Indicated Procedures Musculoskeletal [id number]: Other Procedure See Report
--- NOTE | 2022-03-03 12:20 | DCINST_ITS ---
Discharge Instructions Diet Discharge Diet: No restrictions Activity Discharge Activity: May Not Drive Keep extremity elevated above heart level: Operative Extremity Additional Activity Instructions:: pendulum exercises and hand/wrist/elbow exercises four times a day, otherwise sling. Dressing / Incision Call your doctor if your incision/area has: Continuous Slow Oozing, Sudden Increased Bleeding, Increased Pain/ Swelling, Increased Redness, Foul Smelling Discharge and Swelling at the incision site Remove Dressing in: leave in place till F/U Cleanse incision/area with: Do not get Incision Wet Follow Up Care Please Follow Up With: Hilton Recio MD When: 2 weeks Test Results: Test results from this visit will be discussed in further detail at your follow- up appointment, if applicable. Discharge Plan Admission Attending Provider: Hilton Recio Primary Care Provider: Ingris Judge NP Discharge Orders/Prescriptions Prescriptions: New oxycodone-acetaminophen [Percocet] 5-325 mg tablet 1 tab PO Q4H PRN (Reason: pain) 7 Days Qty: 30 0RF No Action Bystolic 5 mg tablet 5 mg PO DAILY fenofibrate 160 mg tablet 160 mg PO DAILY niacin 500 mg tablet 500 mg PO DAILY Refresh Tears 0.5 % drops 1 drp OPHTHALMIC BID Restasis MultiDose 0.05 % drops 1 drp OPHTHALMIC Q12H ascorbic acid (vitamin C) 500 mg capsule 500 mg PO DAILY cholecalciferol (vitamin D3) 25 mcg (1,000 unit) tablet 25 mcg PO DAILY simvastatin 40 mg tablet 40 mg PO DAILY hydrochlorothiazide 25 mg tablet 25 mg PO DAILY sertraline 50 mg tablet 75 mg PO DAILY magnesium 250 mg tablet 500 mg PO DAILY Referrals / Follow Up: Hilton Recio MD [Med Staff - Active Staff] - Ingris Judge NP, NP-C [Primary Care Provider] - Disposition Disposition (needs filled in before D/C Order can be placed): Home, Self Care
--- NOTE | 2022-03-03 12:23 | DCINST_ITS ---
Discharge Instructions Diet Discharge Diet: No restrictions Activity Keep extremity elevated above heart level: Operative Extremity Additional Activity Instructions:: pendulum exercises and hand/wrist/elbow exercises four times a day, otherwise sling. Dressing / Incision Call your doctor if your incision/area has: Continuous Slow Oozing, Sudden Increased Bleeding, Increased Pain/ Swelling, Increased Redness, Foul Smelling Discharge and Swelling at the incision site Cleanse incision/area with: Do not get Incision Wet Follow Up Care Please Follow Up With: Hilton Recio MD Test Results: Test results from this visit will be discussed in further detail at your follow- up appointment, if applicable. Discharge Plan Admission Attending Provider: Hilton Recio Primary Care Provider: Ingris Judge NP Discharge Orders/Prescriptions Prescriptions: New oxycodone-acetaminophen [Percocet] 5-325 mg tablet 1 tab PO Q4H PRN (Reason: pain) 7 Days Qty: 30 0RF No Action Bystolic 5 mg tablet 5 mg PO DAILY fenofibrate 160 mg tablet 160 mg PO DAILY niacin 500 mg tablet 500 mg PO DAILY Refresh Tears 0.5 % drops 1 drp OPHTHALMIC BID Restasis MultiDose 0.05 % drops 1 drp OPHTHALMIC Q12H ascorbic acid (vitamin C) 500 mg capsule 500 mg PO DAILY cholecalciferol (vitamin D3) 25 mcg (1,000 unit) tablet 25 mcg PO DAILY simvastatin 40 mg tablet 40 mg PO DAILY hydrochlorothiazide 25 mg tablet 25 mg PO DAILY sertraline 50 mg tablet 75 mg PO DAILY magnesium 250 mg tablet 500 mg PO DAILY Referrals / Follow Up: Hilton Recio MD [Med Staff - Active Staff] - Ingris Judge NP, KEENAN-C [Primary Care Provider] - Disposition Disposition (needs filled in before D/C Order can be placed): Home, Self Care
== END 2022-03-03 14:30 | disposition home or self-care (01) ==
LOC: SDC 08:18 → AC 08:20
PROVIDERS: PCP Nurse Practitioner Family; Referring Provider Orthopaedic Surgery Sports Medicine; Visit Provider Orthopaedic Surgery Sports Medicine
PROC: (CPT 29805; principal; 2022-03-03 09:45)
DX: M75.101 Unspecified rotator cuff tear or rupture of right shoulder, not specified as traumatic (principal); M75.111 Incomplete rotator cuff tear or rupture of right shoulder, not specified as traumatic; Z87.891 Personal history of nicotine dependence; M75.41 Impingement syndrome of right shoulder; E78.00 Pure hypercholesterolemia, unspecified; I10 Essential (primary) hypertension; Z79.899 Other long term (current) drug therapy; F32.A Depression, unspecified; M19.019 Primary osteoarthritis, unspecified shoulder
CPT/HCPCS: 29824; 29827; 29826; 01630; 64415; 36415; 80048; 85027; 93005; J7120; J2405

== ENCOUNTER 2023-11-29 06:52 | Day surgery (SDC) | payer MEDICARE, SELFPAY ==
[2023-11-29] VITALS (8 sets, daily range): BP systolic 97–139; BP diastolic 57–66; PULSE 56–74; RESP 16–18; TEMP 36.3–36.8; O2SAT 96–100; BMI 25.4
[2023-11-29] MEDS: Lactated Ringers 1,000 ML 15 ML IV (07:17)
--- NOTE | 2023-11-29 07:18 | HP.PCM_ITS ---
History and Physical Date of Admission: 11/29/23 Intake Vital Signs 03/03/2208:44 10/27/2407:11 Height 5 ft 5 in 5 ft 4 in Weight: 153 lb 8 oz BMI 26.3 BP 150/76 H Blood Pressure Location Rt brachial Position Sitting Respiration 18 Pulse 59 L Pulse Source Monitor Temp 97.4 F L Temp Source Temporal Pulse Oximetry (%) 99 Oxygen Delivery Method room air Intake Visit Reasons: MUCUS DISCHARGE IN STOOL Chief Complaint: Mucous and blood in stool Reverse Unit Operator Required: No Accompanied by: Is patient in pain?: No Allergies No Known Allergies Allergy (Verified 10/27/23 08:12) Medications ?Medication ?Instructions ?Recorded ?Confirmed ?Type ascorbic acid (vitamin C) 500 mg 500 mg PO DAILY 11/20/19 10/27/23 History capsule carboxymethylcellulose sodium 0.5 1 drp ophthalmic (eye) BID 11/20/19 10/27/23 History % eye drops (Refresh Tears) cholecalciferol (vitamin D3) 25 25 mcg PO DAILY 11/20/19 10/27/23 History mcg (1,000 unit) tablet cyclosporine 0.05 % eye drops 1 drp ophthalmic (eye) Q12H 11/20/19 10/27/23 History (Restasis MultiDose) fenofibrate 160 mg tablet 160 mg PO DAILY 11/20/19 10/27/23 History nebivolol 5 mg tablet (Bystolic) 5 mg PO DAILY 11/20/19 10/27/23 History niacin 500 mg tablet 500 mg PO DAILY 11/20/19 10/27/23 History hydrochlorothiazide 25 mg tablet 25 mg PO DAILY 01/01/22 10/27/23 History magnesium 250 mg tablet 500 mg PO DAILY 01/01/22 10/27/23 History sertraline 50 mg tablet 75 mg PO DAILY 01/01/22 10/27/23 History simvastatin 40 mg tablet 40 mg PO DAILY 01/01/22 10/27/23 History pantoprazole 40 mg tablet,delayed See Rx Instructions .Route 06/22/23 10/27/23 Rx release .COMPLEX #90 tabs ginkgo biloba 40 mg tablet 40 mg PO DAILY 10/27/23 10/27/23 History PFSH Medical History (Updated 10/27/23 @ 11:[address] Sukh Givens MD) Mucus in stool Blood in stool Right shoulder pain Alcohol use History of steroid therapy Diabetes Arthritis History of renal disease History of ulceration Former smoker Leg cramps History of edema History of stress test Subacromial impingement of right shoulder AC joint arthropathy Rotator cuff tear, right History of skin cancer Allergies High cholesterol Depression Reflux esophagitis HTN (hypertension) Surgical History Hx of colonoscopy Hx of total knee replacement Family History Sister CVA (cerebral vascular accident)Mother DiabetesFather Heart disease Hypertension Diabetes Cancer Social History Smoking Status: Former smoker alcohol intake: never HPI HPI HPI: Patient is a 68-year-old female here for epigastric pain and change in stools. The patient had EGD and colonoscopy done in 2019. At that time she had a normal colonoscopy and EGD showed gastritis with bleeding. She was put on a PPI and she is still on a PPI but lately she has been having more epigastric pain that does not coincide with certain foods. She is also been noticing blood in her stool and mucus for the last 6 months. ROS General General: No weight change, appetite, fatigue, colon cancer, breast cancer or weakness HEENT HEENT: No difficulty swallowing, eye injury, eye surgery, swollen glands or hoarseness Endo Endocrine: No thyroid disease, diabetes mellitus, thyroid cancer, Hair loss, heat intolerance or cold intolerance Skin Skin: No rash or changing moles Breast Breast: No left breast lump, right breast lump, nipple discharge, breast pain, abnormal mammogram, abnormal US or breast enlargement Musc Musculoskeletal: Yes arthritis; No back problems, rheumatoid arthritis, gout or joint pain Cardio Cardiovascular: Yes high blood pressure; No murmur, pacemaker, heart disease, atrial fibrillation, heart attack, heart stent, palpitations, shortness of breat with exertion or chest pain Psych Psychiatric: Yes depression; No anxiety or hearing voices Resp Respiratory: No shortness of breath, No sleep apnea, No cough, No COPD, No asthma, No emphysema and No wheezing Gastro Gastrointestinal: Yes abdominal pain, No nausea or vomiting, No diarrhea, No constipation, Yes blood in stool, No acid reflux, No hemorrhoids, No ulcers, No gallbladder problem and No black,tarry stools Alvaro Hematologic: No blood thinners, No blood disorders, No bleeding, No anemia and No blood clots Neuro Neurologic: No system reviewed and no additional complaints, except as documented, No as per HPI, No abnormal gait, No abnormal hearing, No abnormal movements, No abnormal speech, No behavioral changes, No burning sensations, No confusion, No convulsions, No disequilibrium, No dizziness, No localized weakness, No frequent falls, No headache(s), No lack of coordination, No loss of vision, No memory loss, No numbness, No other visual disturbances, No radicular pain, No restless legs, No sensory deficit, No syncope, No tingling, No tremor(s), No weakness and No other Exam Const General: cooperative Orientation: alert and oriented x3 HENMT Head: normal to inspection Neck Neck: normal visual inspection and full ROM Chest Chest palpation & inspection: normal inspection of the chest Resp Effort & Inspection: normal respiratory effort Auscultation: clear to auscultation bilaterally Cardio Rate: regular rate Rhythm: regular rhythm GI Inspection: non-distended Palpation: soft and nontender Skin General: no rashes or lesions noted Neuro General: patient alert and patient oriented x3 Extrem General: full ROM Psych Appearance: grossly normal Mental Status: mental status grossly normal Assessment and Plan Assessment and Plan (1) Epigastric pain: Status: Acute (2) Blood in stool: Status: Acute Orders: Orders Colonoscopy Today EGD Today Plan The patient is having mucus and blood in her stool for the last 6 months. She is also having increasing epigastric pain. She did have gastritis with bleeding last EGD. Plan for EGD and colonoscopy. I explained endoscopy in detail to the patient. I explained the risks including but not limited to stroke or heart attack with anesthesia, perforation of the GI tract, bleeding, infection. I explained that any of these could necessitate further emergency surgery. The patient understands and all questions were answered sufficiently. The patient wishes to proceed with procedure. Sukh Givens MD Pager: [facility] [address] [place] [address], [address] [place] [address] Office: I have examined the patient and the H&P has been reviewed. There are no clinical changes since date of exam.
--- NOTE | 2023-11-29 07:20 | PRE.ANES_ITS ---
ASA Classification* ASA Classification ASA Classification: 2 Assessment & Plan Anesthesia* Anesthesia Assessment Anesthesia Assessment: Discussed sedation and/or anesthesia options, risks, benefits, and alternatives with patient/parents/legal guardian/POA. Questions invited. The patient/parents/legal guardian/POA seems to understand and agrees to proceed with anesthesia plan. Reviewed the physical assessment, medical history, allergy history and patient home medications list prior to surgery/procedure/anesthetic and documented any changes. Performed airway and anesthesia risk assessments. Anesthesia Type Anesthesia Type: MAC (see written pre anesthesia record for full assessment) Anesthesia Focused Assessment* Temperature: 97.7 F Pulse Rate: 63 Blood Pressure: 131/65 Respiratory Rate: 16 Pulse Ox: 99 Airway Assessment Mouth opens: >3 cm Mallampati Score: III Focused Labs Anesthesia Preop lab: CBC WBC 5.9 K/mm3 (4.4-11.0) 02/25/22 09:30 RBC 4.58 M/mm3 (4.2-5.4) 02/25/22 09:30 Hgb 12.2 g/dL (12.0-15.0) 02/25/22 09:30 Hct 38.5 % (37-47) 02/25/22 09:30 Plt Count 247 K/mm3 (150-450) 02/25/22 09:30 CHEMISTRY Potassium 3.6 mmol/L (3.5-5.1) 02/25/22 09:30 Sodium 137 mmol/L (136-145) 02/25/22 09:30 BUN 25 mg/dL (7-18) H 02/25/22 09:30 Creatinine 1.12 mg/dL (0.55-1.02) H 02/25/22 09:30 Glucose 90 mg/dL (74-106) 02/25/22 09:30 COAG Pre-Assessment Diagnosis/Proposed Procedure Planned Operative Procedure(s): COLONOSCOPY/EGD Anesthesia History 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 When Was Last Pacemaker Check QUESTION #4 FULL TEXT: You/Your Family Experience fever (hyperthermia) with Anesthesia Last Oral Intake Last Oral intake: Last Oral Intake NPO since Meds taken in AM with sips of water? Meds patient instructed to take am of surgery PONV PONV - senior information systems architect: PONV - senior information systems architect Female Yes 11/21/23 15:27 HX of Motion Sickness No 11/21/23 15:27 HX of N/V After Surgery No 11/21/23 15:27 Non-Smoker Yes 11/21/23 15:27 Duration of Surgery greater No 11/21/23 15:27 than 60 minutes Number of Risk Factors 2 11/21/23 15:27 PONV Score Moderate Risk 11/21/23 15:27 Height & Weight Height & Weight: Anesthesia: Height & Weight Height 5 ft 4 in 11/29/23 07:05 Weight: 67.1 kg 11/29/23 07:05 Body Mass Index (BMI) 25.4 11/29/23 07:05 Respiratory Assessment Respiratory Assessment - senior information systems architect: Respiratory Tract Infection Hx - senior information systems architect Hx Respiratory Tract Infection No 11/21/23 15:27 STOP Sleep Apnea STOP Sleep Apnea - senior information systems architect: STOP Sleep Apnea - senior information systems architect Hx Hypertension Yes: CONTROLLED WITH MED 11/21/23 15:27 Hx Sleep Apnea No 11/21/23 15:27 CPAP BIPAP Do you snore loudly (louder No 11/21/23 15:27 than talking or can be heard Do you often feel tired/ No 11/21/23 15:27 fatigued/ sleepy during daytime? Has anyone observed you stop No 11/21/23 15:27 breathing during sleep? STOP Results Negative 11/21/23 15:27 QUESTION #5 FULL TEXT : Do you snore loudly (louder than talking or can be heard through closed doors)? 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 Specify any problems Hx of Preganancy in last 3 No 11/21/23 15:27 Months Nurse Filling Out Transfusion VCHRISTIN 11/21/23 15:27 & Questions: Date: 11/21/23 11/21/23 15:27 Time: 15:28 11/21/23 15:27 Patient unable to answer at this time (ie. confused, unrespo /Reproduction History /Reproductive History - senior information systems architect: /Reproductive Hx- senior information systems architect Hx Now Gestational Age (in weeks): EDC: Hx Hx Para Hx Section SAB No 11/21/23 15:27 Active Medications Active Medications: Current Medications Generic Name Dose Route Start Last Admin Trade Name Freq PRN Reason Stop Dose Admin Lactated Ringer's 1,000 mls @ 15 mls/hr 11/29/23 07:00 11/29/23 07:17 IV 15 mls/hr .Q48H ZARINA Administration PFSH Medical History Wears contact lenses Wears glasses Post-menopausal Cancer Anxiety Anemia Heartburn Mucus in stool Blood in stool Alcohol use Diabetes Arthritis History of renal disease History of ulceration Former smoker Leg cramps History of edema History of stress test Subacromial impingement of right shoulder AC joint arthropathy Rotator cuff tear, right Right shoulder pain History of skin cancer Allergies High cholesterol Depression Reflux esophagitis HTN (hypertension) Home Medications ?Medication ?Instructions ?Recorded ?Last Taken ?Type carboxymethylcellulose sodium 0.5 1 drp ophthalmic (eye) BID 11/20/19 11/28/23 History % eye drops (Refresh Tears) cholecalciferol (vitamin D3) 25 25 mcg PO DAILY 11/20/19 11/28/23 History mcg (1,000 unit) tablet cyclosporine 0.05 % eye drops 1 drp ophthalmic (eye) Q12H 11/20/19 11/28/23 History (Restasis MultiDose) fenofibrate 160 mg tablet 160 mg PO DAILY 11/20/19 11/28/23 History nebivolol 5 mg tablet (Bystolic) 5 mg PO DAILY 11/20/19 11/29/23 History hydrochlorothiazide 25 mg tablet 25 mg PO DAILY 01/01/22 11/28/23 History magnesium 250 mg tablet 250 mg PO DAILY 01/01/22 11/28/23 History simvastatin 40 mg tablet 40 mg PO DAILY 01/01/22 11/28/23 History pantoprazole 40 mg tablet,delayed See Rx Instructions .Route 06/22/23 11/28/23 Rx release .COMPLEX #90 tabs ginkgo biloba 40 mg tablet 40 mg PO DAILY 10/27/23 11/28/23 History ezxsrcid-bxij-qelb 8 mg-folic 400 1 tab PO DAILY 11/21/23 11/28/23 History mcg-K 50 mcg-lutein 300 mcg tablet ([facility]) sertraline 100 mg tablet 100 mg PO DAILY 11/29/23 11/28/23 History Allergy/AdvReac Type Severity Reaction Status Date / Time No Known Allergies Allergy Verified 11/21/23 15:16 Family History Sister CVA (cerebral vascular accident) Mother Diabetes Father Heart disease Hypertension Diabetes Cancer Surgical History Hx of arthroscopy of shoulder Hx of colonoscopy Hx of total knee replacement Social History Smoking Status: Former smoker alcohol intake: never Review of Systems (Anesthesia) ROS Narrative System reviewed and no additional complaints, except as documented.
--- NOTE | 2023-11-29 08:00 | IMM_PTH ---
PATIENT: CLAUDIA FROST LOC: EN U#:[id number] AGE/SX: 68/F ROOM: RE11/29/[address]: Dr. Sukh Givens MD : 1955 BED: DIS: 11/29/2023 SPEC #: [id number] RECD: 11/29/23 10:29 STATUS: TALIB BUBBA #: [id number] CARLOS: 11/29/23 08:[address]: Sukh Givens DEPT: IMMUNOHISTOCHEMISTRY RECD BY: Alessandro Interiano ENTERED: 11/29/23 10:29 SP TYPE: IMMUNO OTHR DR: TERRANCE Ruvalcaba Tissues: A - Gastric mucous membrane Procedures: H Pylori (initial) PHYSICIAN & INSTITUTION [place] [address] SPECIMEN INFORMATION: Tissue Source: A- Antrum biopsy Clinical Info: Epigastric pain, blood in stool Specimen Number: [id number] CPT code: 97779 METHODOLOGY: Deparaffinized sections of prefer/formalin-fixed tissue or PAP/DQ stained slides are incubated with monoclonal/polyclonal antibodies/oligonucleotide probes. Localization is made via biotin free immunoperoxidase method. Appropriate controls are performed and reacted as expected. Results on target cell population are indicated in the following table: RESULTS: ANTIBODY / CLONE RESULT Block A H Pylori (polyclonal) negative These tests were developed and their performance characteristics determined by [facility]. They may not have been cleared or approved by the U.S. Food and Drug Administration. The FDA has determined that such clearance or approval is not necessary. The above immunohistochemical/dualISH markers are ordered and reviewed by the Pathologist. INTERPRETATION: A. Antrum, biopsy: Negative for Helicobacter pylori organisms. KELLI/ 11/30/2023
--- NOTE | 2023-11-29 08:00 | EGD_PTH ---
PATIENT: CLAUDIA FROST LOC: EN U#:[id number] AGE/SX: 68/F ROOM: RE11/29/[address]: Dr. Sukh Givens MD : 1955 BED: DIS: 11/29/2023 SPEC #: [id number] RECD: 11/29/23 09:34 STATUS: TALIB BUBBA #: [id number] CARLOS: 11/29/23 08:[address]: Sukh Givens DEPT: SURGICAL PATHOLOGY RECD BY: Abbi Mckinney ENTERED: 11/29/23 10:32 SP TYPE: EGD BIOPSY DIANE DR: TERRANCE Ruvalcaba Tissues: A - Gastric mucous membrane B - Esophagus, NOS Procedures: Special Stain Group I Surgery Specimen Level IV Alcian Blue/PAS (control) HEADER OPERATION: Colonoscopy, EGD biopsy PRE-OP DIAGNOSIS: Epigastric pain, blood in stool TISSUE SUBMITTED: A- Antrum biopsy, B- Gastroesophageal junction biopsy MICROSCOPIC DIAGNOSIS A. Antrum, biopsy: Mild gastritis. See microscopic description and comment. B. Gastroesophageal junction, biopsy: Fragments of gastroesophageal mucosa with chronic inflammation. Intestinal metaplasia (goblet cell metaplasia) not identified. KELLI/ 11/30/2023 COMMENT A. The results of immunohistochemistry for Helicobacter pylori will be reported separately ([id number]). B. Alcian blue/PAS stain with matched control is used in the evaluation of the specimen. MICROSCOPIC DESCRIPTION Slides are reviewed. A. The specimen shows fragments of gastric mucosa with chronic inflammatory cell infiltrates in the lamina propria consisting of lymphocytes and plasma cells, consistent with mild chronic gastritis. GROSS DESCRIPTION A. Received in fixative is one container labeled with the patient's name and designated Antrum biopsy. The specimen consists of two irregular fragments of light robles soft tissue that in aggregate measure 0.9 x 0.2 x 0.1 cm. The specimen is totally submitted in one cassette. B. Received in fixative is one container labeled with the patient's name and designated GE junction biopsy. The specimen consists of two irregular fragments of light robles soft tissue that in aggregate measure 0.6 x 0.3 x 0.1 cm. The specimen is totally submitted in one cassette. KELLI/ 11/29/2023 TC:3 CPT:69524v5,35438
--- NOTE | 2023-11-29 08:30 | PCM.POST.ANE ---
Anesthesia: Postop Eval I Current Vital Signs Temperature: 97.3 F Pulse Rate: 69 Blood Pressure: 97/57 Respiratory Rate: 16 Pulse Ox: 96 Oxygen Delivery Method: Room Air Assessment Airway patent: Yes Spontaneous unlabored respirations: Yes Mental status: Awake and Calm nausea: No Vomiting: No Anesthesia Complication: No Fluid Hydration Crystalloid volume administer (ml): 600 Total IV fluid infused: 600 Progress Note Anesthesia document: Postop Eval 1 completed: Yes
--- NOTE | 2023-11-29 08:31 | OP.EGD_ITS ---
Patient Name: Maricarmen Jenkins Procedure Date: 11/29/2023 7:55 AM Date of : 1955 Age: 68 Procedure: Upper GI endoscopy Indications: Epigastric abdominal pain, Heartburn Providers: Sukh Givens MD Medicines: Propofol per Anesthesia Patient Profile: This is a 68 year old female. Refer to note in patient chart for documentation of history and physical. Complications: No immediate complications. Estimated blood loss: Minimal. Procedure: Pre-Anesthesia Assessment: - Prior to the procedure, a History and Physical was performed, and patient medications and allergies were reviewed. The patient's tolerance of previous anesthesia was also reviewed. The risks and benefits of the procedure and the sedation options and risks were discussed with the patient. All questions were answered, and informed consent was obtained. Prior Anticoagulants: The patient has taken no anticoagulant or antiplatelet agents. After reviewing the risks and benefits, the patient was deemed in satisfactory condition to undergo the procedure. After obtaining informed consent, the endoscope was passed under direct vision. Throughout the procedure, the patient's blood pressure, pulse, and oxygen saturations were monitored continuously. The Endoscope was introduced through the mouth, and advanced to the fourth part of duodenum. The upper GI endoscopy was accomplished without difficulty. The patient tolerated the procedure well. Scope In: 8:06:02 AM Scope Out: 8:09:03 AM Total Procedure Duration Time 0 hours 3 minutes 1 second Findings: The stomach was normal. The examined duodenum was normal. Biopsies were taken with a cold forceps in the gastric antrum for Helicobacter pylori testing. One tongue of salmon-colored mucosa was present. Biopsies were taken with a cold forceps for histology. Impression: - Normal stomach. - Normal examined duodenum. - [place]-colored mucosa suspicious for short-segment Murrell's esophagus. Biopsied. - Biopsies were taken with a cold forceps for Helicobacter pylori testing. Recommendation: - Discharge patient to home. - Resume previous diet. - Continue present medications. - Await pathology results. Procedure Code(s): --- Professional --- 28376, Esophagogastroduodenoscopy, flexible, transoral; with biopsy, single or multiple Diagnosis Code(s): --- Professional --- K22.89, Other specified disease of esophagus R10.13, Epigastric pain R12, Heartburn CPT copyright 2022 [employer]. All rights reserved. The codes documented in this report are preliminary and upon braille coder review may be revised to meet current compliance requirements. Sukh Givens MD 11/29/2023 8:30:43 AM This report has been signed electronically. Number of Addenda: 0 Note Initiated On: 11/29/2023 7:55 AM
--- NOTE | 2023-11-29 08:31 | OP.CCLET_ITS ---
11/29/2023 Eufemia Ruvalcaba Re : Upper GI endoscopy procedure for Maricarmen Sibley Nu This procedure was performed on Wednesday, November 29, 2023. My impressions and recommendations are as follows: Impressions : - Normal stomach. - Normal examined duodenum. - [place]-colored mucosa suspicious for short-segment Murrell's esophagus. Biopsied. - Biopsies were taken with a cold forceps for Helicobacter pylori testing. Recommendations : - Discharge patient to home. - Resume previous diet. - Continue present medications. - Await pathology results. My findings are described in the full procedure note, which is enclosed. If I can be of further assistance, please feel free to contact me at Doctor phone number(s): , Work: . Sincerely, Sukh Givens MD 11/29/2023 8:30:43 AM This report has been signed electronically.
--- NOTE | 2023-11-29 08:33 | OP.CCLET_ITS ---
11/29/2023 Eufemia Ruvalcaba Re : Colonoscopy procedure for Maricarmen Jenkins Dear Nu This procedure was performed on Wednesday, November 29, 2023. My impressions and recommendations are as follows: Impressions : - The entire examined colon is normal on direct and retroflexion views. - No specimens collected. Recommendations : - Repeat colonoscopy in 10 years for screening purposes. - Continue present medications. My findings are described in the full procedure note, which is enclosed. If I can be of further assistance, please feel free to contact me at Doctor phone number(s): , Work: . Sincerely, Sukh Givens MD 11/29/2023 8:32:47 AM This report has been signed electronically.
--- NOTE | 2023-11-29 08:33 | OP.COLON_ITS ---
Patient Name: Maricarmen Jenkins Procedure Date: 11/29/2023 8:11 AM Date of : 1955 Age: 68 Procedure: Colonoscopy Indications: Rectal bleeding Providers: Sukh Givens MD Medicines: Propofol per Anesthesia Patient Profile: This is a 68 year old female. Refer to note in patient chart for documentation of history and physical. Last Colonoscopy: 5 years ago. Complications: No immediate complications. Procedure: Pre-Anesthesia Assessment: - Prior to the procedure, a History and Physical was performed, and patient medications and allergies were reviewed. The patient's tolerance of previous anesthesia was also reviewed. The risks and benefits of the procedure and the sedation options and risks were discussed with the patient. All questions were answered, and informed consent was obtained. Prior Anticoagulants: The patient has taken no anticoagulant or antiplatelet agents. After reviewing the risks and benefits, the patient was deemed in satisfactory condition to undergo the procedure. - Prior to the procedure, a History and Physical was performed, and patient medications and allergies were reviewed. The patient's tolerance of previous anesthesia was also reviewed. The risks and benefits of the procedure and the sedation options and risks were discussed with the patient. All questions were answered, and informed consent was obtained. Prior Anticoagulants: The patient has taken no anticoagulant or antiplatelet agents. After reviewing the risks and benefits, the patient was deemed in satisfactory condition to undergo the procedure. After I obtained informed consent, the scope was passed under direct vision. Throughout the procedure, the patient's blood pressure, pulse, and oxygen saturations were monitored continuously. The Colonoscope was introduced through the anus and advanced to the cecum, identified by appendiceal orifice and ileocecal valve. The colonoscopy was performed without difficulty. The patient tolerated the procedure well. The quality of the bowel preparation was good. The ileocecal valve, appendiceal orifice, and rectum were photographed. Scope In: 8:13:20 AM Scope Withdrawal Time 0 hours 7 minutes 2 seconds Scope Out: 8:23:18 AM Total Procedure Duration Time 0 hours 9 minutes 58 seconds Findings: The entire examined colon appeared normal on direct and retroflexion views. Internal hemorrhoids were found during retroflexion. Impression: - The entire examined colon is normal on direct and retroflexion views. - No specimens collected. Recommendation: - Repeat colonoscopy in 10 years for screening purposes. - Continue present medications. Procedure Code(s): --- Professional --- 18418, Colonoscopy, flexible; diagnostic, including collection of specimen(s) by brushing or washing, when performed (separate procedure) Diagnosis Code(s): --- Professional --- K62.5, Hemorrhage of anus and rectum CPT copyright 2021 [employer]. All rights reserved. The codes documented in this report are preliminary and upon biomedical engineer review may be revised to meet current compliance requirements. Sukh Givens MD 11/29/2023 8:32:47 AM This report has been signed electronically. Number of Addenda: 0 Note Initiated On: 11/29/2023 8:11 AM
--- NOTE | 2023-11-29 08:51 | POSTOPAN2_ITS ---
Anesthesia Postop Eval I Sum Postop Eval Completion status Anesthesia document: Postop Eval 1 completed: Yes Anesthesia Postop Eval I Summary Anesthesia Postop Eval I Summary: Anesthesia Postop Eval I: Assessment Summary Airway patent Yes 11/29/23 08:30 STAFFING DIRECTOR.GDOTT Spontaneous unlabored Yes 11/29/23 08:30 STAFFING DIRECTOR.GDOTT respirations Mental status Awake,Calm 11/29/23 08:30 STAFFING DIRECTOR.GDOTT nausea No 11/29/23 08:30 STAFFING DIRECTOR.GDOTT Vomiting No 11/29/23 08:30 STAFFING DIRECTOR.GDOTT Anesthesia Postop Eval I: Fluid Summary Crystalloid volume administer 600 11/29/23 08:30 STAFFING DIRECTOR.GDOTT (ml) Colloids volume administered ( ml) Blood Product volume administered (ml) Total IV fluid infused 600 11/29/23 08:30 STAFFING DIRECTOR.GDOTT Anesthesia Postop Eval I: Summary Notes Anesthesia Complication No 11/29/23 08:30 STAFFING DIRECTOR.GDOTT Anesthesia Complication Comment: Post-operative progress note Anesthesia: Postop Eval II Evaluation Mental status: Awake Pain Level: 0 nausea: No Vomiting: No
--- NOTE | 2023-11-29 08:51 | PCM.POSTANE2 ---
Anesthesia Postop Eval I Sum Postop Eval Completion status Anesthesia document: Postop Eval 1 completed: Yes Anesthesia Postop Eval I Summary Anesthesia Postop Eval I Summary: Anesthesia Postop Eval I: Assessment Summary Airway patent Yes 11/29/23 08:30 DIETETIC TECH.[email or web address] Spontaneous unlabored Yes 11/29/23 08:30 DIETETIC TECH.GDOTT respirations Mental status Awake,Calm 11/29/23 08:30 DIETETIC TECH.GDOTT nausea No 11/29/23 08:30 DIETETIC TECH.GDOTT Vomiting No 11/29/23 08:30 DIETETIC TECH.GDOTT Anesthesia Postop Eval I: Fluid Summary Crystalloid volume administer 600 11/29/23 08:30 DIETETIC TECH.GDOTT (ml) Colloids volume administered ( ml) Blood Product volume administered (ml) Total IV fluid infused 600 11/29/23 08:30 DIETETIC TECH.GDOTT Anesthesia Postop Eval I: Summary Notes Anesthesia Complication No 11/29/23 08:30 DIETETIC TECH.GDOTT Anesthesia Complication Comment: Post-operative progress note Anesthesia: Postop Eval II Evaluation Mental status: Awake Pain Level: 0 nausea: No Vomiting: No
== END 2023-11-29 09:01 | disposition home or self-care (01) ==
LOC: EN 06:53 → AC 06:55
PROVIDERS: PCP Nurse Practitioner Family; Referring Provider Nurse Practitioner Family; Visit Provider Surgery
PROC: 0DJD8ZZ Inspection of Lower Intestinal Tract, Via Natural or Artificial Opening Endoscopic (ICD-10-PCS; CPT 45378; principal; 2023-11-29 07:55)
DX: K29.70 Gastritis, unspecified, without bleeding (principal); E11.9 Type 2 diabetes mellitus without complications; K64.8 Other hemorrhoids; I10 Essential (primary) hypertension; E78.00 Pure hypercholesterolemia, unspecified; F41.9 Anxiety disorder, unspecified; F32.A Depression, unspecified; Z79.899 Other long term (current) drug therapy; Z87.891 Personal history of nicotine dependence
CPT/HCPCS: 43239; 45378; 88305; 88312; 88342; J7120

== ENCOUNTER → 2023-12-06 | Outpatient (CLI) | payer MEDICARE, SELFPAY ==
--- NOTE | 2023-12-06 07:19 | US_ITS ---
STUDY: ABDOMINAL ULTRASOUND - RIGHT UPPER QUADRANT REASON FOR VISIT: Female, 68 years old epigastric, abdominal pain TECHNIQUE: Ultrasound evaluation of the right upper quadrant was performed with real-time and static rodriguez-scale imaging. TECHNICAL QUALITY: Adequate. COMPARISON: 01/04/2020 FINDINGS: Liver: The liver measures 16.1 cm. There is increased echogenicity consistent with fatty infiltration. The bile ducts are within normal limits. There is hepatic color flow. The direction of portal flow is hepatopetal. There is no demonstrated mass lesion. Gallbladder: Normal distended gallbladder. The gallbladder wall measures 2 mm. There is a negative sonographic Ferrara''s sign. There is no pericholecystic fluid. There are no gallstones. Common Bile Duct (C.B.D.): The common bile duct measures 6 mm. Pancreas: Normal size of the head, body and tail of the pancreas. There is normal echogenicity of the pancreas. There is no demonstrated pancreatic mass or cyst. Right Kidney: Normal size of the right kidney. The right kidney measures 9.5 cm. Normal renal cortex. The right cortex measures 1.2 cm. There is no demonstrated renal mass or cyst. There is no right hydronephrosis. US/Gallbladder IMPRESSION: Fatty infiltration of liver. Electronically Signed: Antolin Roman MD at 8:48 EDT ,
== END | disposition home or self-care (01) ==
PROVIDERS: PCP Nurse Practitioner Family; Referring Provider Surgery; Visit Provider Surgery
DX: R10.13 Epigastric pain (principal)
CPT/HCPCS: 76705

== ENCOUNTER → 2024-01-18 | Outpatient (CLI) | payer MEDICARE, SELFPAY ==
--- NOTE | 2024-01-18 09:54 | NM_ITS ---
INDICATION: abdominal pain EXAMINATION: NUCLEAR MEDICINE HEPATOBILIARY SCAN - NM Hepatobiliary Imaging Quantitive TECHNIQUE: 5.7 mCi technetium 99m choletec was intravenously administered and static images were obtained. COMPARISON: Ultrasound 12/08/2023 FINDINGS: There is homogeneous uptake and excretion of the radiopharmaceutical by the liver. There is no abnormal hyperemia along the gallbladder fossa. Biliary activity is noted at 10 minutes. Bowel activity is noted at 70 minutes. Gallbladder activity is noted at 10 minutes. After the administration of cholecystokinin intravenously, gallbladder ejection fraction was cannulated. The gallbladder ejection fraction is 90% which is normal. NM/Hepatobilliary Img w/Pharm Int IMPRESSION: Negative hepatobiliary scan. Electronically Signed: Antolin Roman MD at 12:57 EDT ,
== END | disposition home or self-care (01) ==
LOC: NM 09:50
PROVIDERS: PCP Nurse Practitioner Family; Referring Provider Surgery; Visit Provider Surgery
DX: R10.13 Epigastric pain (principal)
CPT/HCPCS: 78227; A9537; J2805

== ENCOUNTER 2024-01-30 05:56 | Day surgery (SDC) | payer MEDICARE, SELFPAY ==
[2024-01-30] VITALS (11 sets, daily range): BP systolic 98–129; BP diastolic 52–87; PULSE 55–73; RESP 16–18; TEMP 36.1–36.7; O2SAT 88–100; BMI 25.7
--- NOTE | 2024-01-30 06:04 | EKG12_ITS ---
Test Reason : PRE OP Blood Pressure : / mmHG Vent. Rate : 058 BPM Atrial Rate : 058 BPM P-R Int : 172 ms QRS Dur : 080 ms QT Int : 426 ms P-R-T Axes : 069 032 043 degrees QTc Int : 418 ms Sinus bradycardia Otherwise normal ECG When compared with ECG of 25-FEB-2022 09:22, No significant change was found Confirmed by BELLA SHANE, MONSERRAT ([id number]), fan mail editor LILLIAN ADAM ([id number]) on 01/31/2024 6:18:14 AM Referred By: Ingris Judge Confirmed By:MONSERRAT BLANCO MD
[2024-01-30] MEDS: Lactated Ringers 1,000 ML 15 ML IV ×2 (06:30→09:11)
--- NOTE | 2024-01-30 06:41 | PRE.ANES_ITS ---
ASA Classification* ASA Classification ASA Classification: 3 Assessment & Plan Anesthesia* Anesthesia Assessment Anesthesia Assessment: Discussed sedation and/or anesthesia options, risks, benefits, and alternatives with patient/parents/legal guardian/POA. Questions invited. The patient/parents/legal guardian/POA seems to understand and agrees to proceed with anesthesia plan. Reviewed the physical assessment, medical history, allergy history and patient home medications list prior to surgery/procedure/anesthetic and documented any changes. Performed airway and anesthesia risk assessments. Anesthesia Type Anesthesia Type: General Anesthesia Focused Assessment* Temperature: 98.0 F Pulse Rate: 62 Blood Pressure: 122/61 Respiratory Rate: 18 Pulse Ox: 100 Airway Assessment Mouth opens: >3 cm Mallampati Score: II Focused Labs Anesthesia Preop lab: CBC WBC 5.9 K/mm3 (4.4-11.0) 02/25/22 09:30 RBC 4.58 M/mm3 (4.2-5.4) 02/25/22 09:30 Hgb 12.2 g/dL (12.0-15.0) 02/25/22 09:30 Hct 38.5 % (37-47) 02/25/22 09:30 Plt Count 247 K/mm3 (150-450) 02/25/22 09:30 CHEMISTRY Potassium 3.6 mmol/L (3.5-5.1) 02/25/22 09:30 Sodium 137 mmol/L (136-145) 02/25/22 09:30 BUN 25 mg/dL (7-18) H 02/25/22 09:30 Creatinine 1.12 mg/dL (0.55-1.02) H 02/25/22 09:30 Glucose 90 mg/dL (74-106) 02/25/22 09:30 COAG Pre-Assessment Diagnosis/Proposed Procedure Planned Operative Procedure(s): LAP FARHAD Anesthesia History Anesthesia History - technical applications scientist: Anesthesia History - technical applications scientist Hx Hospitalization No 01/25/24 13:17 Any Problems With Anesthesia No 01/25/24 13:17 Cholinesterase deficiency No 01/25/24 13:17 You/Your Family Experience No 01/25/24 13:17 fever (hyperthermia) with Relationship Recent Exposure to Contagious No 01/30/24 06:26 Disease Does patient have nerve No 01/25/24 13:17 stimulator Patient instructed to have device shut off --Does patient have Pacemaker No 01/30/24 06:26 or ICD? When Was Last Pacemaker Check QUESTION #4 FULL TEXT: You/Your Family Experience fever (hyperthermia) with Anesthesia Last Oral Intake Last Oral intake: Last Oral Intake NPO since 04:30 01/30/24 06:26 Meds taken in AM with sips of Yes 01/30/24 06:26 water? Meds patient instructed to see medlist 01/30/24 06:26 take am of surgery PONV PONV - technical applications scientist: PONV - technical applications scientist Female Yes 01/25/24 13:17 HX of Motion Sickness No 01/25/24 13:17 HX of N/V After Surgery Yes 01/25/24 13:17 Non-Smoker Yes 01/25/24 13:17 Duration of Surgery greater Yes 01/25/24 13:17 than 60 minutes Number of Risk Factors 4 01/25/24 13:17 PONV Score Severe Risk 01/25/24 13:17 Height & Weight Height & Weight: Anesthesia: Height & Weight Height 5 ft 4 in 01/30/24 06:26 Weight: 67.9 kg 01/30/24 06:26 Body Mass Index (BMI) 25.7 01/30/24 06:26 Respiratory Assessment Respiratory Assessment - technical applications scientist: Respiratory Tract Infection Hx - technical applications scientist Hx Respiratory Tract Infection No 01/25/24 13:17 STOP Sleep Apnea STOP Sleep Apnea - technical applications scientist: STOP Sleep Apnea - technical applications scientist Hx Hypertension Yes: CONTROLLED WITH MED 01/25/24 13:17 Hx Sleep Apnea No 01/25/24 13:17 CPAP BIPAP Do you snore loudly (louder No 01/25/24 13:17 than talking or can be heard Do you often feel tired/ No 01/25/24 13:17 fatigued/ sleepy during daytime? Has anyone observed you stop No 01/25/24 13:17 breathing during sleep? STOP Results Negative 01/25/24 13:17 QUESTION #5 FULL TEXT : Do you snore loudly (louder than talking or can be heard through closed doors)? Tobacco Use History Tobacco Use History - technical applications scientist: Tobacco Use History - technical applications scientist Tobacco Use Smoking Status Former smoker 01/25/24 13:17 Hx Tobacco Use No 01/25/24 13:17 Years Smoking Packs Smoked per Day Smoking Cessation Date was No - quit smoking greater 01/25/24 13:17 within the last 15 years than 15 years ago Hx Smoking Cessation Date 05/23/11 01/25/24 13:17 Hx Smoking Cessation No 01/25/24 13:17 Counseling Hematologic Medial History Hematologic Hx - technical applications scientist: Hematologic Medical Hx - approver Hx of Blood Transfusion No 01/25/24 13:17 Hx of Transfusion in last 3 No 01/25/24 13:17 Months Date of Last Transfusion (if within last 3 months) Ever experience any problems No 01/25/24 13:17 with transfusion(s)? Specify any problems Hx of Preganancy in last 3 No 01/25/24 13:17 Months Nurse Filling Out Transfusion [facility] 01/25/24 13:17 & Questions: Date: 01/25/24 01/25/24 13:17 Time: 13:21 01/25/24 13:17 Patient unable to answer at this time (ie. confused, unrespo /Reproduction History /Reproductive History - technical applications scientist: /Reproductive Hx- technical applications scientist Hx Now No 01/25/24 13:17 Gestational Age (in weeks): EDC: Hx Hx Para Hx Section SAB No 01/25/24 13:17 Active Medications Active Medications: Current Medications Generic Name Dose Route Start Last Admin Trade Name Freq PRN Reason Stop Dose Admin Cefazolin Sodium 2 gm/ Sodium 110 mls @ 150 mls/hr 01/30/24 07:30 Chloride IV 01/30/24 08:13 PREOP ONE Lactated Ringer's 1,000 mls @ 15 mls/hr 01/30/24 06:15 01/30/24 06:30 IV 15 mls/hr .Q48H ZARINA Administration PFSH Medical History Abdominal pain Wears contact lenses Wears glasses Post-menopausal Cancer Anxiety Anemia Heartburn Mucus in stool Blood in stool Alcohol use Diabetes Arthritis History of renal disease History of ulceration Former smoker Leg cramps History of edema History of stress test Subacromial impingement of right shoulder AC joint arthropathy Rotator cuff tear, right Right shoulder pain History of skin cancer Allergies High cholesterol Depression Reflux esophagitis HTN (hypertension) Home Medications ?Medication ?Instructions ?Recorded ?Last Taken ?Type carboxymethylcellulose sodium 0.5 1 drp ophthalmic (eye) BID 11/20/19 11/28/23 History % eye drops (Refresh Tears) cholecalciferol (vitamin D3) 25 25 mcg PO DAILY 11/20/19 11/28/23 History mcg (1,000 unit) tablet cyclosporine 0.05 % eye drops 1 drp ophthalmic (eye) Q12H 11/20/19 11/28/23 History (Restasis MultiDose) fenofibrate 160 mg tablet 160 mg PO DAILY 11/20/19 11/28/23 History nebivolol 5 mg tablet (Bystolic) 5 mg PO DAILY 11/20/19 01/30/24 History hydrochlorothiazide 25 mg tablet 25 mg PO DAILY 01/01/22 11/28/23 History magnesium 250 mg tablet 250 mg PO DAILY 01/01/22 11/28/23 History simvastatin 40 mg tablet 40 mg PO DAILY 01/01/22 11/28/23 History pantoprazole 40 mg tablet,delayed See Rx Instructions .Route 06/22/23 01/30/24 Rx release .COMPLEX #90 tabs ginkgo biloba 40 mg tablet 40 mg PO DAILY 10/27/23 11/28/23 History vnqoaunn-przt-sbpl 8 mg-folic 400 1 tab PO DAILY 11/21/23 11/28/23 History mcg-K 50 mcg-lutein 300 mcg tablet ([facility]) sertraline 100 mg tablet 100 mg PO DAILY 11/29/23 11/28/23 History Allergy/AdvReac Type Severity Reaction Status Date / Time No Known Allergies Allergy Verified 01/30/24 06:20 Family History Sister CVA (cerebral vascular accident) Mother Diabetes Father Heart disease Hypertension Diabetes Cancer Surgical History Hx of arthroscopy of shoulder Hx of colonoscopy Hx of total knee replacement Social History Smoking Status: Former smoker alcohol intake: never Review of Systems (Anesthesia) ROS Narrative System reviewed and no additional complaints, except as documented.
--- NOTE | 2024-01-30 07:08 | PCM.HP.BLA ---
History and Physical Date of Admission: 01/30/24 Date of Service: 01/25/24 MR#: [id number] Acct: [id number] Name: CLAUDIA FROST Rep #: [id number] : 1955 Provider: Dr. Alpa Lawrence MD Age/Sex: 68/F Location: [facility] Status: Signed Intake Vital Signs 11/28/2406:05 01/25/2408:20 Height 5 ft 4 in 5 ft 4 in Weight: 150 lb 8 oz BMI 25.8 BP 138/73 H Blood Pressure Location Rt brachial Position Sitting Respiration 17 Pulse 54 L Pulse Source Monitor Temp 97 F L Temp Source Temporal Pulse Oximetry (%) 98 Oxygen Delivery Method room air Intake Visit Reasons: ABNORMAL HIDA Chief Complaint: abnormal hida Is patient in pain?: Yes Allergies No Known Allergies Allergy (Verified 01/25/24 13:14) Medications ?Medication ?Instructions ?Recorded ?Confirmed ?Type carboxymethylcellulose sodium 0.5 1 drp ophthalmic (eye) BID 11/20/19 01/25/24 History % eye drops (Refresh Tears) cholecalciferol (vitamin D3) 25 25 mcg PO DAILY 11/20/19 01/25/24 History mcg (1,000 unit) tablet cyclosporine 0.05 % eye drops 1 drp ophthalmic (eye) Q12H 11/20/19 01/25/24 History (Restasis MultiDose) fenofibrate 160 mg tablet 160 mg PO DAILY 11/20/19 01/25/24 History nebivolol 5 mg tablet (Bystolic) 5 mg PO DAILY 11/20/19 01/25/24 History hydrochlorothiazide 25 mg tablet 25 mg PO DAILY 01/01/22 01/25/24 History magnesium 250 mg tablet 250 mg PO DAILY 01/01/22 01/25/24 History simvastatin 40 mg tablet 40 mg PO DAILY 01/01/22 01/25/24 History pantoprazole 40 mg tablet,delayed See Rx Instructions .Route 06/22/23 01/25/24 Rx release .COMPLEX #90 tabs ginkgo biloba 40 mg tablet 40 mg PO DAILY 10/27/23 01/25/24 History iijmllwf-kaby-nwrf 8 mg-folic 400 1 tab PO DAILY 11/21/23 01/25/24 History mcg-K 50 mcg-lutein 300 mcg tablet ([facility]) sertraline 100 mg tablet 100 mg PO DAILY 11/29/23 01/25/24 History Have you fallen in the past year?: No PFSH Medical History Abdominal pain Wears contact lenses Wears glasses Post-menopausal Cancer Anxiety Anemia Heartburn Mucus in stool Blood in stool Alcohol use Diabetes Arthritis History of renal disease History of ulceration Former smoker Leg cramps History of edema History of stress test Subacromial impingement of right shoulder AC joint arthropathy Rotator cuff tear, right Right shoulder pain History of skin cancer Allergies High cholesterol Depression Reflux esophagitis HTN (hypertension) Surgical History Hx of arthroscopy of shoulder Hx of colonoscopy Hx of total knee replacement Family History Sister CVA (cerebral vascular accident)Mother DiabetesFather Heart disease Hypertension Diabetes Cancer Social History Smoking Status: Former smoker alcohol intake: never HPI HPI HPI: 68-year-old female presents due to epigastric abdominal pain after eating. Patient has had multiple ultrasounds last 1 was 12/06/2023 did not show any gallstones wall was 2 mm no pericholecystic fluid negative Ferrara sign normal common bile duct. Previous 1 also did not show any gallstones. Patient then had a HIDA scan which showed ejection fraction of 90%. Patient states during the HIDA scan she did have increased epigastric pain which lasted for 2 days after the injection of the CCK. Patient states her pain usually starts after eating. Patient states she does have reflux however is on pantoprazole and it is controlled with that. ROS General General: No weight change, appetite, fatigue, colon cancer or breast cancer HEENT HEENT: No difficulty swallowing, eye injury, eye surgery, swollen glands or hoarseness Endo Endocrine: No thyroid disease, diabetes mellitus, thyroid cancer, Hair loss, heat intolerance or cold intolerance Skin Skin: No rash or changing moles Musc Musculoskeletal: Yes arthritis; No back problems, rheumatoid arthritis, gout or joint pain Cardio Cardiovascular: Yes high blood pressure; No murmur, pacemaker, heart disease, atrial fibrillation, heart attack, heart stent, palpitations, shortness of breat with exertion or chest pain Psych Psychiatric: Yes depression; No anxiety or hearing voices Resp Respiratory: No shortness of breath, No sleep apnea, No cough, No COPD, No asthma, No emphysema and No wheezing Gastro Gastrointestinal: Yes abdominal pain, No nausea or vomiting, No diarrhea, No constipation, No blood in stool, No acid reflux, No hemorrhoids, No ulcers, Yes gallbladder problem and No black,tarry stools Alvaro Hematologic: No blood thinners, No blood disorders, No bleeding, No anemia and No blood clots Neuro Neurologic: No numbness and No tingling Exam Const General: cooperative, healthy appearing, comfortable and no acute distress HENMT Head: normocephalic and atraumatic Neck Neck: supple Resp Effort & Inspection: normal respiratory effort Cardio Rate: regular rate GI Inspection: non-distended Palpation: soft, no hernias and tender in the epigastrum (mild); with no rebound tenderness Skin General: no rashes or lesions noted Neuro General: CN's II-XI intact bilaterally Extrem General: normal to inspection Psych Mental Status: mental status grossly normal Attitude: cooperative Assessment and Plan Assessment and Plan (1) Epigastric pain: Status: Acute (2) Recurrent biliary colic: Status: Acute Comment: HIDA scan shows ejection fraction of greater 90%?biliary hyperkinesia Plan Discussed with patient due to her symptoms occurring with the HIDA scan and CCK and also fitting after eating meals likely that discomfort is caused by the biliary hyperkinesia which can be resolved with laparoscopic cholecystectomy, however there is a chance it may not improve all of her discomfort. Reviewed the anatomy with the patient and discussed the procedure: laparoscopic cholecystectomy with possible cholangiograms, possible open. Review risks including but not limited to bleeding, infection, hernia, bile leak, retained gallstones requiring another procedure ERCP- Endoscopic Retrograde Cholangiopancreatography, injury to another organ (bile ducts, common bile duct, small bowel, etc.) and conversion to an open procedure. All questions were answered. Alpa Lawrence M.D. Pager: [phone] [facility] [address] [place] [address], [address] [place] [address] Office: [phone] Coding Level of Care Code Off vis,est,level 3 Diagnoses Epigastric pain R10.13 Recurrent biliary colic K80.50 Clinical Quality Measures Falls Risk Screening/Assistive Devices Have you fallen in the past year?: No 01/26/24 0900 <Electronically signed by Alpa Lawrence MD> Date Alpa Lawrence MD
--- NOTE | 2024-01-30 07:30 | GALL_PTH ---
PATIENT: CLAUDIA FROST LOC: [facility] [place] [facility] [place] U#:[id number] AGE/SX: 68/F ROOM: RE01/30/[address]: Dr. Alpa Lawrence MD : 1955 BED: DIS: 01/30/2024 SPEC #: [id number] RECD: 01/30/24 12:27 STATUS: TALIB BUBBA #: [id number] CARLOS: 01/30/24 07:[address]: Alpa Lawrence DEPT: SURGICAL PATHOLOGY RECD BY: Domi Hargrove ENTERED: 01/30/24 13:19 SP TYPE: BETH CONTRERAS DR: Ingris Judge, TERRANCE Tissues: Gallbladder, NOS Procedures: Surgery Specimen Level III HEADER OPERATION: Laparoscopic cholecystectomy with cholangiograms PRE-OP DIAGNOSIS: Epigastric pain, recurrent biliary colic, umbilical hernia TISSUE SUBMITTED: Gallbladder MICROSCOPIC DIAGNOSIS Gallbladder, cholecystectomy: Chronic cholecystitis and cholesterolosis. See shanon. 01/31/2024 COMMENT No stones are identified in the container or in the gallbladder. MICROSCOPIC DESCRIPTION Slides are reviewed. GROSS DESCRIPTION Received is one container labeled with the patient's name and designated gallbladder. The specimen consists of a gallbladder measuring 9.0 cm in length and up to 3.0 cm in diameter. The external surface is pink-robles, smooth and glistening for the most part. Focally it is granular, hemorrhagic and contains cautery artifact. The gallbladder contains green-yellow mucoid bile and a small amount of blood clot. No stones are identified in the container or in the gallbladder. The mucosa is bile-stained and without any mass lesions. The gallbladder wall measures up to 0.2 cm in thickness. The mucosa also shows several yellowish streaks consistent with cholesterolosis. Housing Project Manager sections from the gallbladder and the cystic duct are submitted in one cassette. / SJ: 01/30/2024 TC:3 [facility]: [id number]
[2024-01-30] MEDS: Cefazolin 2 GM in 0.9% Normal Saline (100mL Bag) 100 ML IV (07:32)
--- NOTE | 2024-01-30 07:59 | RAD_ITS ---
INDICATION: FARHAD W/ IOC EXAMINATION/TECHNIQUE: Cine intraoperative images are presented for evaluation. Total Fluoroscopic Time: 20.5 seconds Number of fluoroscopic images: Cine images were obtained COMPARISON: No relevant prior comparison study available FINDINGS: No filling defects are identified. Prominent common bile duct. There is free passage into the duodenum. RAD/Cholangiogram/ O R,Initial IMPRESSION: Prominent common bile duct without evidence of constant filling defect Electronically Signed: Andrew Mooney MD at 13:10 EDT ,
[2024-01-30] MEDS: Bupivacaine Mpf 0.5% 30 ML VIAL (08:48)
--- NOTE | 2024-01-30 08:52 | OP.PCM_ITS ---
Report of Operation Date of Procedure: 01/30/24 Pre-Operative Diagnosis: Biliary hyperkinesia, recurrent biliary colic, umbilic al hernia Post-Operative Diagnosis: Same Surgery/Procedure Performed:: Laparoscopic cholecystectomy with cholangiograms, primary repair umbilical hernia Surgeon: Alpa Lawrence Type of Anesthesia: General/Supplemental Anesthesiologist: Zeeshan Hart Special Medications: Ancef 2 g IV x 1 Estimated Blood Loss (mL): < 10 cc Description of Procedure: Indications: this is a 68 year-old female who developed abdominal pain/nausea/vomiting and on workup was found to have biliary hyperkinesia with ejection fraction greater than 90%, with a normal common bile duct. Laparoscopic cholecystectomy was elected. Description procedure: The patient was placed on operating table in supine position. A timeout was completed verifying correct patient, procedure, site, position and special equipment prior to beginning procedure. General Anesthesia was induced. The abdomen was prepped and draped in usual sterile fashion. An incision was made in the natural skin line below the umbilicus at patient's umbilical hernia. The fascia was elevated and incised. The peritoneum was elevated and incised. Entry into the peritoneum was confirmed visually and no bowel was noted in the vicinity of the incision. Ramos trocar was placed. The abdomen was insufflated with carbon dioxide to a pressure of 12-15 mmHg. Patient tolerated insufflation well. The laparoscope was then inserted and abdomen inspected. No injuries from initial trocar placement were noted. Additional trochars were then inserted in the following locations 5 mm trocar in the epigastrium and 2 more 5 mm trochars along the right costal margin. The abdomen was inspected no abnormalities were found. The table is placed in reverse Trendelenburg position with the right side up. The dome of the gallbladder was grasped with atraumatic grasper passed through the lateral port and retracted over the dome of the liver. Infundibulum was then grasped with atraumatic grasper through the midclavicular port and retracted to the right lower quadrant. This maneuver exposed Calot's triangle. The peritoneum overlying the gallbladder infundibulum was then incised and cystic duct and artery identified and circumferentially dissected. Matamoros catheter was used for cholangiograms. The cholangiogram showed good filling of the common bile duct into the duodenum with no filling defects, good filling of the right and left bile ducts as well. The cystic duct and artery were then doubly clipped and divided close to the gallbladder. The gallbladder then dissected from its peritoneal attachments by electrocautery. Hemostasis was checked and the gallbladder and contained stones were removed using the endoscopic retrieval bag through the umbilical port. The gallbladder is passed off table as specimen. The gallbladder fossa was irrigated with saline and hemostasis obtained. There is no evidence of bleeding from the gallbladder fossa or cystic artery leakage of bile from the cystic duct stump. Secondary trochars removed under direct vision. No bleeding was noted the trocar sites. The laparoscope was withdrawn and umbilical trocar removed. The abdomen was allowed to collapse. The fascia of the 12 mm trocar was closed with a [id number] 0 Nurolon suture x 2. The skin was closed with sutures of 4-0 Monocryl and Steri-Strips. The patient was extubated. The patient tolerated procedure well and was taken to the postanesthesia care unit in stable condition. Grafts/Implants Used: none Complications none
--- NOTE | 2024-01-30 08:55 | EX.PCM.DISCH ---
Discharge Instructions Diet Discharge Diet: Light diet - advance as tolerated Activity Discharge Activity: May Not Drive (while taking narcotic pain medications.) May shower in (days): 1 Lifting Restrictions: no lifting >20 lbs x 2 wks, no strenuous exercise for 4 wks Dressing / Incision Call your doctor if your incision/area has: Continuous Slow Oozing, Sudden Increased Bleeding, Increased Pain/ Swelling, Increased Redness, Foul Smelling Discharge and Swelling at the incision site Call your doctor if you observe: Fever of 101 or Higher Remove Dressing in: 2 days Cleanse incision/area with: Soap & Water Additional Dressing/Incision Instructions:: Steri-Strips will fall off in 7 to 10 days, if they do not fall off okay to remove after 10 days. Follow Up Care Please Follow Up With: Alpa Lawrence MD When: Call the office for a follow-up appointment 2 weeks; after 5 PM and on the weekends call [phone] with any concerns. Test Results: Test results from this visit will be discussed in further detail at your follow-up appointment, if applicable. Discharge Plan Admission Attending Provider: Alpa Lawrence Primary Care Provider: Ingris Judge SENIOR OPERATIONS ANALYST Instructions Print Language: Polish Discharge Orders/Prescriptions Prescriptions: New oxycodone 5 mg capsule 5 mg PO Q6H PRN (Reason: pain) 3 Days Qty: 7 0RF ondansetron 4 mg tablet,disintegrating 4 mg PO Q8H PRN (Reason: nausea and vomiting) Qty: 5 0RF Continued Bystolic 5 mg tablet 5 mg PO DAILY fenofibrate 160 mg tablet 160 mg PO DAILY Refresh Tears 0.5 % drops 1 drp OPHTHALMIC BID Restasis MultiDose 0.05 % drops 1 drp OPHTHALMIC Q12H cholecalciferol (vitamin D3) 25 mcg (1,000 unit) tablet 25 mcg PO DAILY simvastatin 40 mg tablet 40 mg PO DAILY hydrochlorothiazide 25 mg tablet 25 mg PO DAILY magnesium 250 mg tablet 250 mg PO DAILY ginkgo biloba 40 mg tablet 40 mg PO DAILY Rx Instructions: give with meal/snack [facility] 8 mg iron-400 mcg-50 mcg tablet 1 tab PO DAILY sertraline 100 mg tablet 100 mg PO DAILY pantoprazole 40 mg tablet,delayed release (DR/EC) See Rx Instructions .ROUTE .COMPLEX Qty: 90 3RF Dose Instruction: TAKE 1 TABLET BY MOUTH EVERY DAY Rx Instructions: TAKE 1 TABLET BY MOUTH EVERY DAY Referrals / Follow Up: Ingris Judge SENIOR OPERATIONS ANALYST, SENIOR OPERATIONS ANALYST-C [Primary Care Provider] - Disposition Disposition (needs filled in before D/C Order can be placed): Home, Self Care
--- NOTE | 2024-01-30 09:09 | PCM.POST.ANE ---
Anesthesia: Postop Eval I Current Vital Signs Temperature: 98 F Pulse Rate: 73 Blood Pressure: 98/87 Respiratory Rate: 16 Pulse Ox: 95 Oxygen Delivery Method: Room Air Assessment Airway patent: Yes Spontaneous unlabored respirations: Yes Mental status: Awake and Calm nausea: No Vomiting: No Anesthesia Complication: No Fluid Hydration Crystalloid volume administer (ml): 900 Total IV fluid infused: 900 Progress Note Anesthesia document: Postop Eval 1 completed: Yes
--- NOTE | 2024-01-30 10:06 | PCM.POSTANE2 ---
Anesthesia Postop Eval I Sum Postop Eval Completion status Anesthesia document: Postop Eval 1 completed: Yes Anesthesia Postop Eval I Summary Anesthesia Postop Eval I Summary: Anesthesia Postop Eval I: Assessment Summary Airway patent Yes 01/30/24 09:12 Spontaneous unlabored Yes 01/30/24 09:12 respirations Mental status Awake,Calm 01/30/24 09:12 nausea No 01/30/24 09:12 Vomiting No 01/30/24 09:12 Anesthesia Postop Eval I: Fluid Summary Crystalloid volume administer 900 01/30/24 09:12 (ml) Colloids volume administered ( ml) Blood Product volume administered (ml) Total IV fluid infused 900 01/30/24 09:12 Anesthesia Postop Eval I: Summary Notes Anesthesia Complication No 01/30/24 09:12 Anesthesia Complication Comment: Post-operative progress note Anesthesia: Postop Eval II Evaluation Mental status: Awake Pain Level: 2 nausea: No Vomiting: No
[2024-01-30] MEDS: oxyCODONE 5 MG Tablet PO (10:47)
== END 2024-01-30 11:52 | disposition home or self-care (01) ==
LOC: SDC 05:57 → AC 05:59
PROVIDERS: PCP Nurse Practitioner Family; Referring Provider Nurse Practitioner Family; Visit Provider Surgery
PROC: (CPT 47610; principal; 2024-01-30 07:10)
DX: K80.64 Calculus of gallbladder and bile duct with chronic cholecystitis without obstruction (principal); E11.22 Type 2 diabetes mellitus with diabetic chronic kidney disease; N18.30 Chronic kidney disease, stage 3 unspecified; K42.9 Umbilical hernia without obstruction or gangrene; Z87.891 Personal history of nicotine dependence; Z79.899 Other long term (current) drug therapy; K21.9 Gastro-esophageal reflux disease without esophagitis; I12.9 Hypertensive chronic kidney disease with stage 1 through stage 4 chronic kidney disease, or unspecified chronic kidney disease; E78.00 Pure hypercholesterolemia, unspecified; F32.A Depression, unspecified
CPT/HCPCS: 47562; 00790; 74300; 76000; 88304; 93005; J7120; J2405